=== PATIENT | female | born 1945 | race Caucasian/White ===

== ENCOUNTER 2019-06-30 12:17 | Inpatient (IN) | payer MEDICARE ==
[~2019-06-30] VITALS: Ht 157.5 cm
[2019-06-30 12:17] VITALS: BP 130/60
[2019-06-30 13:21] LABS: BASO % 0.4 % (0.0-1.0); EOS % 0.3 % (1.0-4.0); HEMATOCRIT 28.5 % (37.0-47.0); LYMPH # 1.2 10*3/uL (1.3-4.4); LYMPH % 12.5 % (27.0-41.0); MEAN CELL VOLUME 84.8 fl (81.0-99.0); MEAN CORPUSCULAR HGB 26.8 pg (27.0-31.0); MEAN CORPUSCULAR HGB CONC 31.6 g/dl (33.0-37.0); MEAN PLATELET VOLUME 9.6 fl (9.6-12.3); MONO # 0.7 10*3/uL (0.1-1.0); MONO % 7.2 % (3.0-9.0); NEUT # 7.4 10*3/uL (2.3-7.9); NEUT % 79.2 % (47.0-73.0); PLATELET COUNT AUTOMATED 335 10*3/uL (130-400); RED BLOOD COUNT 3.36 10*6/uL (4.10-5.10); RED CELL DISTRI WIDTH 14.3 % (0-14.5); WHITE BLOOD COUNT 9.3 10*3/uL (4.8-10.8)
[2019-06-30 13:38] LABS: ALBUMIN 2.6 gm/dl (3.1-4.5); CREATININE 1.09 mg/dL (0.55-1.02); POTASSIUM 4.1 mmol/L (3.5-5.1); TOTAL PROTEIN 7.5 gm/dL (6.4-8.2)
[2019-06-30 13:50] VITALS: BP 110/51
[2019-06-30] MEDS ORDERED: NORCO 5-325 TA1 EACH PO (14:46)
[2019-06-30] MEDS ORDERED: LASIX40 MG PO (14:46)
[2019-06-30] MEDS ORDERED: PAXIL10 MG PO (14:46)
[2019-06-30] MEDS ORDERED: PRAVACHOL40 MG PO (14:47)
[2019-06-30] MEDS ORDERED: NEXIUM40 MG PO (14:47)
[2019-06-30] MEDS ORDERED: CYCLOBENZAPRINE10 MG PO (14:48)
[2019-06-30] MEDS ORDERED: DONEPEZIL HYDRO10 M1 PO (14:48)
[2019-06-30 15:30] VITALS: BP 127/48
--- NOTE | 2019-06-30 15:55 | NUR ---
LEFT FOREARM WAS DRESSED WELL LEFT ELBOW.
[2019-06-30 16:00] VITALS: BP 139/61
[2019-06-30 16:08] VITALS: BP 116/51
--- NOTE | 2019-06-30 16:30 | NUR ---
A 74, admitted to , under the services of FRANK Hudson DO with a diagnosis of L HIP FRACTURE. Chief complaint is FELL @ HOME, FRACTURED HIP. Patient arrived via bed from ER. Monitor applied. Initial assessment completed. Vital signs taken and recorded. FRANK HUDSON DO notified of admission to the unit. Orders received. See assessment for past medical history, medications and allergies. Patient and/or family oriented to unit. [facility] visitation policy reviewed. Clothing/patient valuable form completed. ELADIA MALONE
[2019-06-30] MEDS ORDERED: METFORMIN HYDR500 MG PO (16:46)
[2019-06-30] MEDS ORDERED: ENALAPRIL MALEA20 MG PO (16:48)
[2019-06-30] MEDS ORDERED: SLOW-MAG71.5 MG PO (16:48)
[2019-06-30] MEDS ORDERED: PROAIR HFA8.5 GM INH (16:48)
[2019-06-30] MEDS ORDERED: GAS-X125 MG PO (16:49)
[2019-06-30] MEDS ORDERED: ECOTRIN325 M1 PO (16:49)
--- NOTE | 2019-06-30 18:25 | NUR ---
PATIENT MEDICATED WITH IV MORPHINE AT THIS TIME FOR COMPLAINTS OF L HIP PAIN 05/01. WILL MONITOR FOR EFFECTIVENESS.
[2019-06-30 20:00] VITALS: BP 139/60
--- NOTE | 2019-06-30 20:05 | NUR ---
PATIENT MEDICATED WITH NORCO PER PRN ORDER FOR C/OL HIP PAIN. RATED PAIN A 9/10 WITH 10 BEING THE WORST. SEE EMAR REINFORCED USE OF CALL LIGHT.
--- NOTE | 2019-06-30 22:42 | NUR ---
MORPHINE GIVEN PER PRN ORDER FOR C/O L HIP PAIN. RATED PAIN A 7/10 WITH 10 BEING THE WORST. SEE EMAR. REINFORCED USE OF CALL LIGHT.
--- NOTE | 2019-06-30 22:49 | NUR ---
PATIENT REQUESTED AND WAS MEDICATED TYLENOL PER PRN ORDER FOR C/O HEADACHE. RATED PAIN A 9/10 WITH 10 BEING THE WORST.
[2019-07-01] VITALS (12 sets, daily range): BP systolic 96–134; BP diastolic 43–78
--- NOTE | 2019-07-01 00:22 | NUR ---
NORCO GIVEN FOR C/O HIP PAIN. RATED PAIN A 6/10 WITH 10 BEING THE WORST. SEE EMAR. TYLENOL GIVEN EARLIER WAS EFFECTIVE FOR HEADACHE.
--- NOTE | 2019-07-01 01:29 | NUR ---
PATIENT RESTING QUIETLY. NO FURTHER C/O VOICED.
--- NOTE | 2019-07-01 02:10 | NUR ---
24 HR chart check completed.
--- NOTE | 2019-07-01 04:55 | NUR ---
MORPHINE 2 MG GIVEN FOR C/O HIP PAIN. RATED PAIN A 9/10 WITH 10 BEING THE WORST. SEE EMAR.
--- NOTE | 2019-07-01 04:59 | NUR ---
MORPHINE GIVEN PER PRN ORDER FOR C/O HIP PAIN. RATED PAIN A 8/10 WITH 10 BEING THE WORST. SEE EMAR. REINFORCED USE OF CALL LIGHT.
--- NOTE | 2019-07-01 05:21 | NUR ---
QUINCY BENAVIDES [id number] Please refer to the physician's history and physical for past medical history, comorbid conditions, and allergies. Diagnosis: SUBCAPITAL FRACTURE OF LEFT PAIN CERVICl STRAIN Ger Score: 16,AT RISK WOUND DESCRIPTIONS: Wound Number: 1 Location of the wound: left elbow Type of wound: skin tear Thickness: Partial Size: 1.0cm x 1.0cm x 0.1cm Tunneling: none Undermining: none Sinus Tract: none Presence of Exudate: Serosanguineous Amount: Light Color: Red Odor: None Periwound Skin Appearance: Normal Wound edges: approximated Pain (associated with wound): none at time of assessment How does patient state this happened? pt stated her skin is very thin and all she has to do is lean on the countertop wrong at this can happen she states if she bumps herself she either gets a bruise or an open area Wound Number: 2 Location of the wound: left forearm Type of wound: skin tear Thickness: Partial Size: 1.1cm x 1.2cm x 0.1cm Tunneling: none Undermining: none Sinus Tract: none Presence of Exudate: Serosanguineous Amount: Light Color: Red Odor: None Periwound Skin Appearance: Normal Wound edges: approximated Pain (associated with wound): none at time of assessment How does patient state this happened? pt stated her skin is very thin and all she has to do is lean on the countertop wrong at this can happen she states if she bumps herself she either gets a bruise or an open area Surface the patient is resting on: Isoflex SKIN PREVENTION RECOMMENDATION: 1. Pressure redistribution support surface as appropriate 2. Elevate heels 3. Remove boots/TEDS every shift and reapply 4. Head of bed 30 degrees as tolerated 5. Assess nutrition and hydration 6. Manage moisture 7. Avoid the use of containment devices while in bed 8. Use absorptive products on surfaces limit layers of linens on bed 9. Turn and reposition every 1-2 hours in bed and every 1 hour in chair as tolerated 10. Weight shifts every 15 minutes while up in chair 11. Offloading with pillows or device to keep heels elevated off bed 12. Monitor skin at least every shift 13. Inspect under medical devices twice a day WOUND TREATMENT RECOMMENDATIONS: Skin tear guidelines: Cleanse left elbow and left forearm with nss and apply sureprep around the wound hydrogel to wound bed and cover with optifoam gentle.
[2019-07-01 06:42] LABS: BASO # 0.1 10*3/uL (0.0-0.1); BASO % 0.6 % (0.0-1.0); EOS # 0.1 10*3/uL (0.0-0.4); EOS % 0.8 % (1.0-4.0); HEMATOCRIT 28.7 % (37.0-47.0); LYMPH # 2.4 10*3/uL (1.3-4.4); MEAN CELL VOLUME 83.9 fl (81.0-99.0); MEAN CORPUSCULAR HGB 26.3 pg (27.0-31.0); MEAN CORPUSCULAR HGB CONC 31.4 g/dl (33.0-37.0); MEAN PLATELET VOLUME 10.7 fl (9.6-12.3); MONO # 0.7 10*3/uL (0.1-1.0); NEUT # 6.6 10*3/uL (2.3-7.9); NEUT % 67.3 % (47.0-73.0); PLATELET COUNT AUTOMATED 419 10*3/uL (130-400); RED BLOOD COUNT 3.42 10*6/uL (4.10-5.10); RED CELL DISTRI WIDTH 14.3 % (0-14.5); WHITE BLOOD COUNT 9.9 10*3/uL (4.8-10.8)
[2019-07-01 06:57] LABS: ALBUMIN 2.3 gm/dl (3.1-4.5); CREATININE 1.11 mg/dL (0.55-1.02); PHOSPHOROUS 3.7 mg/dL (2.5-4.9); POTASSIUM 3.8 mmol/L (3.5-5.1); TOTAL PROTEIN 7.4 gm/dL (6.4-8.2)
[2019-07-01 07:11] LABS: FREE T4 1.04 ng/dl (0.76-1.46); THYROID STIM HORMONE (HS) 0.681 uIU/ml (0.358-4.75)
--- NOTE | 2019-07-01 08:03 | NUR ---
PHYSICAL THERAPY Physical therapy referral received. Pt went into surgery this morning. Awaiting weight bearing orders per doctor. Thank you Cierra Farley, PT, DPT
--- NOTE | 2019-07-01 08:03 | NUR ---
PATIENT BEING TAKEN TO SURGERY AT THIS TIME.
--- NOTE | 2019-07-01 08:19 | NUR ---
Occupational THerapy referral received. OTR will proceed with evaluation after surgery and weight bearing precautions. Thank you. Marcella Levy OTR/[facility]
[2019-07-01 08:22] LABS: VITAMIN D, 25-HYDROXY 66.8 ng/mL (30-100)
--- NOTE | 2019-07-01 08:56 | NUR ---
Nursing screen and occupational therapy referral received. Thank you. Marcella Levy OTR/l
--- NOTE | 2019-07-01 10:02 | NUR ---
Dr. Mojica notified of wound care recommendations.
--- NOTE | 2019-07-01 12:55 | NUR ---
Station Jailer in to talk to patient. Patient states lives at HOME with AND SON. There are FEW steps in the home. Physician: GAMALIEL TAVERAS JR Pharmacy: [facility] Home health services:NONE Patient's level of ADLs: INDEPENDENT Patient has working utilities: YES DME: NONE Follow-up physician's appointment after d/c: WILL BE MADE BY HOSPITALIST NURSE DIRECTOR ON DISCHARGE Does patient want to access PORTAL?: NO Discharge plan PT LIVES AT HOME WITH HER AND SON WHO ARE ALSO PTS HER AT [facility]. MOTHER HAS SURGERY TODAY AND HAS REQUESTED TO BE REFERRED TO [facility]. WILL CONTINUE TO FOLLOW. . KRAIG RAY
--- NOTE | 2019-07-01 14:30 | NUR ---
PATIENT MEDICATED WITH MOPRHINE POST-OP FOR COMPLAINTS OF LEFT HIP PAIN; WILL MONITOR
--- NOTE | 2019-07-01 15:30 | NUR ---
PHYSICAL THERAPY Attempted physical therapy evaluation however Pt reports she is in too much pain. Will attempt at a later time. thank you Cierra Farley, PT, DPT
--- NOTE | 2019-07-01 15:33 | NUR ---
Patient unable to participate in Occupational THerapy evaluation as she had too much pain. Nursing informed. OTR will recheck at a later date. Melani Levy OTR/L
--- NOTE | 2019-07-01 15:35 | NUR ---
MOPRHINE NOT EFFECTIVE FOR LEFT HIP PAIN; PATIENT MEDICATED AGAIN WITH NORCO. WILL MONITOR. PAIN STILL 03/31
--- NOTE | 2019-07-01 16:45 | NUR ---
PER PATIENT, NORCO HAS BEEN EFFECTIVE - PT MORE RELAXED AT THIS TIME.
--- NOTE | 2019-07-01 19:25 | NUR ---
PATIENT MEDICATED WITH NORCO PER PRN ORDER FOR C/O L HIP PAIN . RATED PAIN A 9/10 WITH 10 BEING THE WORST. SEE EMAR. REINFORCED USE OF CALL LIGHT.
--- NOTE | 2019-07-01 21:40 | NUR ---
PATIENT MEDICATED WITH TYLENOL AND MORPHINE PER PRN ORDER AND PATIENT REQUEST FOR C/O HEADACHE AND L. HIP PAIN. RATED PAIN A 7/10 WITH 10 BEING THE WORST. SEE EMAR. REINFORCED USE OF CALL LIGHT.
[2019-07-02] VITALS: BP 124/56
--- NOTE | 2019-07-02 03:44 | NUR ---
Upon discharge recommend patient to follow up for wound care in outpatient setting continue current wound care orders at discharging facility.
[2019-07-02 06:38] LABS: BASO # 0.1 10*3/uL (0.0-0.1); BASO % 0.6 % (0.0-1.0); EOS # 0.1 10*3/uL (0.0-0.4); EOS % 0.8 % (1.0-4.0); HEMATOCRIT 24.5 % (37.0-47.0); HEMOGLOBIN 7.5 g/dl (12.0-16.0); LYMPH # 2.2 10*3/uL (1.3-4.4); LYMPH % 20.3 % (27.0-41.0); MEAN CELL VOLUME 85.1 fl (81.0-99.0); MEAN CORPUSCULAR HGB CONC 30.6 g/dl (33.0-37.0); MEAN PLATELET VOLUME 10.8 fl (9.6-12.3); MONO # 1.3 10*3/uL (0.1-1.0); MONO % 12.1 % (3.0-9.0); NEUT # 7.1 10*3/uL (2.3-7.9); NEUT % 65.7 % (47.0-73.0); PLATELET COUNT AUTOMATED 385 10*3/uL (130-400); RED BLOOD COUNT 2.88 10*6/uL (4.10-5.10); RED CELL DISTRI WIDTH 14.6 % (0-14.5); WHITE BLOOD COUNT 10.8 10*3/uL (4.8-10.8)
[2019-07-02 06:57] LABS: BUN 13 mg/dl (7-24); CHLORIDE 104 mmol/L (98-107); CREATININE 0.96 mg/dL (0.55-1.02); POTASSIUM 4.1 mmol/L (3.5-5.1); SODIUM 135 mmol/L (136-145)
--- NOTE | 2019-07-02 07:26 | NUR ---
NEWS CAMERAMAN faxed new referral to [facility]. Will need PT Evals to complete the referral. -HORACIO Donnelly
--- NOTE | 2019-07-02 07:55 | NUR ---
Occupational Therapy evaluation completed on 5 with full eval to follow. Precautions include fall risk,50% weight bearing on left lower extremity, left hip precautions,bloom catheter, IV UE,hemovac LLE, new walker use, high complexity level [id number] via chart review, testing and evaluation. Recommend OT per POC to address ADLs, left hip precautions and partial weightbearing in ADLs and mobility and safety and d/c to SNF to enable return home with family. Patient's disabled son and her are both currently hospitalized. Thank you. Melani Levy OTR/L
--- NOTE | 2019-07-02 08:00 | NUR ---
Face to face encounter with Dr. Mojica. Patients labs orders and post op status were discussed. H & H will be monitored as well as S&S.
--- NOTE | 2019-07-02 08:28 | NUR ---
Dr. Mojica notified of wound care recommendations.
--- NOTE | 2019-07-02 08:37 | NUR ---
Morphine given per patient request for c/o surgical pain rated 10/10. Will monitor.
--- NOTE | 2019-07-02 08:55 | NUR ---
Morphine effective. Patient rates pain 8/10.
--- NOTE | 2019-07-02 08:55 | NUR ---
Casper cath removed. 10cc fluid removed from balloon. 175cc yellow urine collected. Patient educated to notify staff of first void. Patient tolerated well.
--- NOTE | 2019-07-02 09:10 | NUR ---
CARPET WEAVER completed HENs. -HORACIO Donnelly
--- NOTE | 2019-07-02 09:38 | NUR ---
FRAMING INSPECTOR spoke with the patient while having her sign her Medicare Rights form. Patient stated that there is supposed to be a RN coming to the home from [facility] on 07/06/2019. Patient asked that this person be notified of the family being unavaiable due to the current situation. FRAMING INSPECTOR reached out to [facility]. A message was left for Cristiana to return HORACIO phone call. The patient also asked that her or her (who is in our facility as well) be roomed with the patients son (who is in our facility also) at [facility] since they have all be referred there. HORACIO reached out to [facility] who stated she would room this patient and her son together. FRAMING INSPECTOR explained this to the patient. -HORACIO Donnelly
--- NOTE | 2019-07-02 10:54 | NUR ---
[place] given per patient request for c/o surgical pain in left hip rated 8/10. Will monitor.
--- NOTE | 2019-07-02 11:07 | NUR ---
CIVIL ENGINEERING DRAFTSPERSON IN TO TALK TO PT TO SEE IF SHE WAS OK WITH HER SON GOING TO [facility] BEFORE SHE DOES IF WE GET HIS PRECERT. SHE TALKED WITH PT AND BOTH ARE OK WITH PT GOING BEFORE HER IF WE OBTAIN PRECERT.
[2019-07-02 12:00] VITALS: BP 120/54
--- NOTE | 2019-07-02 12:23 | NUR ---
Nutritional Support Services Note: Pt is eating 100% of meals. Regular diet as ordered. Skin tear noted to left arm. Hip Fx. No other nutrition intervention needed at this time. Will follow as needed. Mary Ibanez Rdn Ld
--- NOTE | 2019-07-02 13:20 | NUR ---
OT NOTE Pt was seen this P.M. 1:1 for 20 minute OT session. Upon arrival pt was supine in bed. Pt identified by name and and had complaints of "12/10 L hip and L knee pain." Educated pt on use of overhead trapeze bar. Pt then transferred supine to sit EOB with modA and use of overhead trapeze bar. While sitting EOB pt was educated on hip precautions due to being unable to recall, pt also provided with a handout. Pt completed multiple sit to stand transfers from bed level with Criss X 2 and use of w/w for UE uspport. Challenged pt's static standing tolerance needed for increased I in self care tasks and functional transfers. Pt was able to tolerate aprox 60 seconds at a time before sitting due to fatigue. Pt then transferred back into bed sit to supine with maxA X 2. There she was left with call light in hand, tray table in place, bed alarm activated for safety, and pillow placed between legs for abduction. Continue with rec D/C plan to SNF. HERSON Miranda/[facility]
--- NOTE | 2019-07-02 13:52 | NUR ---
PHYSICAL THERAPY Progress note: Pt was seen for evaluation while on 5th floor. She is status post left hip hemiarthroplasty with total hip precautions and 50% weight bearing. Please refer to evaluation for complete details with recommendation for SNF upon acute care discharge. Thank you for this referral. Marifer Mccormack, PT
--- NOTE | 2019-07-02 14:05 | NUR ---
PHYSICAL THERAPY Patient seen this pm 1:1 for therapy visit and was resting supine in bed upon therapist arrival. Patient identified by name / and reports increased c/o of L hip pain 08/31. Patient instructed on bed positioning for pressure relief / comfort with use of overhead trapeze bar and is 50% PWB on L LE. Patient transfers supine to sit EOB with MOD A, needing therapist assist for L LE support and to maintain standard hip precations. Patient completed several sit to stand transfers Min A with use of wh walker standing support. Patient demonstrates [place] L side posture and was able to maintain standard hip precations / WB status. Patient fatigues quickly and needed seated rest between trials. Patient returned to supine in bed secondary to c/o of pain and remained with call light, tray table, telephone and bed alarm for safety. Will continue per POC as tolerated, total treatment time 14 minutes. Castro Blackman, SUBSTITUTE BUS DRIVER
--- NOTE | 2019-07-02 14:25 | NUR ---
FINANCIAL MANAGER faxed PT Eval to [facility]. Patient would be able to go to [facility] 07/03/2019 if medically stable, however her post-op day 3 would be 07/04/2019. Either day patient would be okay to be transported to [facility]. -HORACIO Donnelly
[2019-07-02 16:00] VITALS: BP 111/23; BP 111/52
--- NOTE | 2019-07-02 16:34 | NUR ---
PHYSICAL THERAPY CO-SIGN I approve of the Physical Therapy notes written above. KEI WIGGINS PT,DPT
--- NOTE | 2019-07-02 16:35 | NUR ---
Notified Dr. Mojica that patients home medications have not been ordered. No new orders, physician to review.
--- NOTE | 2019-07-02 17:20 | NUR ---
[place] given per patient request for c/o surgical pain rated 9/10. Will monitor.
--- NOTE | 2019-07-02 18:12 | NUR ---
[place] effective. Patient is satisfied and rates pain 7/10.
[2019-07-02 20:00] VITALS: BP 123/59
--- NOTE | 2019-07-02 20:00 | NUR ---
PATIENT MEDICATED WITH TYLENOL PER PRN ORDER FOR C/O HIP PAIN. RATED PAIN A 6/10 WITH 10 BEING THE WORST. SEE EMAR. REINFORCED USE OF CALL LIGHT.
--- NOTE | 2019-07-02 21:00 | NUR ---
PATIENT STATED MEDICATION GIVEN EARLIER HELPED A LITTLE TO TAKE EDGE OFF PAIN. REINFORCED USE OF CALL LIGHT.
--- NOTE | 2019-07-02 22:00 | NUR ---
PATIENT MEDICATED WITH NORCO PER PRN ORDER AND PATIENT REQUEST FOR C/O HIP PAIN. RATED PAIN A 6/10 WITH 10 BEING THE WORST. SEE EMAR. REINFORCED USE OF CALL LIGHT.
--- NOTE | 2019-07-02 23:46 | NUR ---
PATIENT RESTING QUIETLY. NO FURTHER C/O VOICED. STATED PAIN LEVEL TOLERABLE AT PRESENT.
[2019-07-03] VITALS: BP 139/53
[2019-07-03 06:38] LABS: BASO # 0.1 10*3/uL (0.0-0.1); BASO % 0.9 % (0.0-1.0); EOS # 0.2 10*3/uL (0.0-0.4); EOS % 1.4 % (1.0-4.0); HEMATOCRIT 24.1 % (37.0-47.0); HEMOGLOBIN 7.4 g/dl (12.0-16.0); LYMPH # 2.3 10*3/uL (1.3-4.4); LYMPH % 20.8 % (27.0-41.0); MEAN CELL VOLUME 85.5 fl (81.0-99.0); MEAN CORPUSCULAR HGB 26.2 pg (27.0-31.0); MEAN CORPUSCULAR HGB CONC 30.7 g/dl (33.0-37.0); MONO # 1.3 10*3/uL (0.1-1.0); MONO % 11.4 % (3.0-9.0); NEUT # 7.2 10*3/uL (2.3-7.9); NEUT % 64.5 % (47.0-73.0); PLATELET COUNT AUTOMATED 401 10*3/uL (130-400); RED BLOOD COUNT 2.82 10*6/uL (4.10-5.10); RED CELL DISTRI WIDTH 14.8 % (0-14.5); WHITE BLOOD COUNT 11.1 10*3/uL (4.8-10.8)
--- NOTE | 2019-07-03 07:00 | NUR ---
DR NICHOLS IN TO SEE PATIENT . DRAIN REMOVED TYLENOL GIVEN PER PRN ORDER FOR C/O PAIN. SEE EMAR. REINFORCED USE OF CALL LIGHT.
[2019-07-03 07:01] LABS: BUN 14 mg/dl (7-24); CHLORIDE 102 mmol/L (98-107); CREATININE 0.96 mg/dL (0.55-1.02); POTASSIUM 4.3 mmol/L (3.5-5.1); SODIUM 134 mmol/L (136-145)
[2019-07-03 08:00] VITALS: BP 128/52
--- NOTE | 2019-07-03 10:15 | NUR ---
NORCO 10/325 MG GIVEN FOR C/0 PAIN,06/01.
--- NOTE | 2019-07-03 10:30 | NUR ---
PHYSICAL THERAPY PATIENT SEEN FOR 1:1 SESSION TODAY WITH THIS PT: COMPLETED BLE THER EX INCLUIDNG ROM AND STRENGTHENING FOR BLE WITH FAIR TOLERANCE. TRANSFERS FROM STS WITH MOD OF 1 AND SPT FROM BED TO RECLINER WITH MOD /MAX OF 1 WITH FWW. BED MOBILITY TRAINING WITH USE OF TRAPEZE AND BED RAILS REQUIRES MOD/MAX OF 1. NOT ABLE TO GAIT TODAY STATING SHE IS HAVING TOO MUCH PAIN. WILL CONTINUE WITH PT WHILE HERE WITH RECOMMENDATIONS STILL FOR SNF ON D/C. THANK YOU RASHAD HATHAWAY PT
[2019-07-03 12:00] VITALS: BP 125/52
[2019-07-03 16:00] VITALS: BP 105/47
--- NOTE | 2019-07-03 19:03 | NUR ---
PT C/O PAIN TO HIP. ENCOURAGED PT TO REPOSITION. PT REFUSED. PT PREVIOUSLY MEDICATED.
[2019-07-03 20:00] VITALS: BP 121/40
--- NOTE | 2019-07-03 22:10 | NUR ---
PATIENT GIVEN NORCO PER REQUEST FOR LEFT LEG PAIN RATED A 7/10. WILL CONTINUE TO MONITOR.
[2019-07-04] VITALS: BP 120/39
--- NOTE | 2019-07-04 06:22 | NUR ---
NORCO GIVEN PER ORDER FOR COMPLAINTS OF 9/10 PAIN IN LEFT HIP. WILL MONITOR EFFECTIVENESS.
[2019-07-04 06:26] LABS: BASO # 0.1 10*3/uL (0.0-0.1); BASO % 0.8 % (0.0-1.0); EOS # 0.2 10*3/uL (0.0-0.4); HEMOGLOBIN 7.1 g/dl (12.0-16.0); LYMPH # 2.8 10*3/uL (1.3-4.4); LYMPH % 29.3 % (27.0-41.0); MEAN CELL VOLUME 85.2 fl (81.0-99.0); MEAN CORPUSCULAR HGB 26.3 pg (27.0-31.0); MEAN CORPUSCULAR HGB CONC 30.9 g/dl (33.0-37.0); MONO % 10.6 % (3.0-9.0); NEUT # 5.4 10*3/uL (2.3-7.9); NEUT % 56.2 % (47.0-73.0); PLATELET COUNT AUTOMATED 437 10*3/uL (130-400); WHITE BLOOD COUNT 9.7 10*3/uL (4.8-10.8)
[2019-07-04 06:54] LABS: CREATININE 1.12 mg/dL (0.55-1.02)
--- NOTE | 2019-07-04 07:52 | NUR ---
24 HR chart check completed.
[2019-07-04 08:00] VITALS: BP 120/42
--- NOTE | 2019-07-04 08:01 | NUR ---
24 HR chart check completed.
--- NOTE | 2019-07-04 09:00 | NUR ---
SLEEPING, AWAKENS EASILY. RESPIRATIONS EASY. LUNGS DIMINISHED, CLEAR. PULSE OX 94% RA. SURGICAL DRESSING REMOVED FROM LEFT HIP, WELL APPROXIMATED WITH 27 LICO INTACT. TUBI-SUEDE BRUSHER AND SCDS APPLIED PER ORDER. CALL LIGHT WITHIN REACH. NO VOICED COMPLAINTS
--- NOTE | 2019-07-04 09:45 | NUR ---
DR BROWN AND DANYELL PRESENT ON FLOOR TO ASSESS PATIENT AND DISCUSS PLAN OF CARE
--- NOTE | 2019-07-04 11:02 | NUR ---
MEDICATED WITH NORCO PER PRN ORDER FOR COMPLAINTS OF LEFT HIP PAIN RATING A 9. CALL LIGHT WITHIN REACH. WILL MONITOR FOR EFFECTIVENESS
[2019-07-04 12:00] VITALS: BP 110/42
--- NOTE | 2019-07-04 12:00 | NUR ---
PAIN MEDS APPEAR EFFECTIVE. SLEEPING. RESPIRATIONS EASY. VSS. CALL LIGHT WITHIN REACH. BED ALARM MAINTAINED
--- NOTE | 2019-07-04 12:00 | NUR ---
BSG 195. REFUSED SS COVERAGE. WILL MONITOR
--- NOTE | 2019-07-04 12:00 | NUR ---
PHYSICAL THERAPY PATIENT SEEN TODAY FOR 1:1 SESSION IN [place] LYING FOR BLE THER EXERCISES INCLDUING AROM, AAROM AND PROM; PATIENT REFUSING OUT OF BED THIS DATE STATING SHE IS TOO TIRED AND IN TOO MUCH PAIN. WAS ABLE TO GET HER TO WORK ON SOME BED MOBILITY TASKS WITH MAX OF 1 FOR REPOSITIONING AND COMFORT. D/C RECOMMENDATIONS REMAIN FOR SNF. THANK YOU RASHAD HATHAWAY PT
--- NOTE | 2019-07-04 13:00 | NUR ---
SURGICAL DRESSING REMOVED FROM LEFT HIP. INCISION SITE WELL APPROXIMATED WITH 27 LICO INTACT. SITE CLEANSED AND DRY DRESSING APPLIED. PATIENT TOLERATED WELL
--- NOTE | 2019-07-04 14:15 | NUR ---
PATIENT ENCOURAGED OOB. DECLINED. EDUCATED PATIENT REGARDING IMPORTANCE OF OOB TID. PATIENT ASSISTED TO RECLINER X 2 STAFF. CALL LIGHT WITHIN REACH.
[2019-07-04 16:00] VITALS: BP 102/40
--- NOTE | 2019-07-04 16:29 | NUR ---
REMAIN IN RECLINER. REQUESTED AND RECEIVED NORCO 10 PER PRN ORDER FOR COMPLAINTS OF LEFT HIP PAIN RATING A 9. PER PATIENT PAIN IS ALWAYS A 9 UNLESS SLEEPING. CALL LIGHT WITHIN REACH. WILL MONITOR
--- NOTE | 2019-07-04 16:30 | NUR ---
BSG 159, CONTINUES TO REFUSE SS COVERAGE
--- NOTE | 2019-07-04 17:00 | NUR ---
STATES EARLIER ELIZABETH HELPED "A ALITTLE." REMAINS IN RECLINER WATCHING TV
--- NOTE | 2019-07-04 19:30 | NUR ---
REMAINS IN RECLINER.
[2019-07-04 20:00] VITALS: BP 90/40; BP 94/38
--- NOTE | 2019-07-04 20:07 | NUR ---
PT ASSISTED BACK INTO BED FROM CHAIR. SCDs APPLIED PER ORDER. PT C/O ITCHING TO POSTERIOR L THIGH. STATES SHE THINKS AREA IS IRRITATED FROM TAPE FROM PREVIOUS SURGICAL DRESSING. AREA IS PINK/RED WITH RAISED WELT-LIKE AREA. PT REQUESTING BENADRYL CREAM OR ORAL BENADRYL. NOTIFIED OF THIS. NEW ORDER RECEIVED FOR 12.5 MG PO BENADRYL X1 DOSE. ALSO MADE AWARE OF BP 94/38. AWARE THAT BP AT 1600 WAS 102/40. INSTRUCTED TO MONITOR FOR NOW.
[2019-07-05] VITALS: BP 105/38
[2019-07-05 04:20] VITALS: BP 101/39
--- NOTE | 2019-07-05 05:41 | NUR ---
DRY STERILE DRESSING TO L HIP SURGICAL INCISION CHANGED PER ORDER. OLD DRESSING CAME OFF. PT TOLERATED WELL. ABD PAD APPLIED TO PROVIDE EXTRA SUPPORT TO DRESSING. SECURED WITH PAPER TAPE. PO NORCO 10/325 ALSO ADMINISTERED PER PRN ORDER AT THIS TIME. PT RATING PAIN IN L HIP 05/01. WILL MONITOR EFFECTIVENESS. CALL LIGHT LEFT IN REACH.
[2019-07-05 06:41] LABS: BASO # 0.1 10*3/uL (0.0-0.1); BASO % 0.5 % (0.0-1.0); EOS # 0.2 10*3/uL (0.0-0.4); EOS % 2.1 % (1.0-4.0); HEMATOCRIT 22.3 % (37.0-47.0); LYMPH # 2.2 10*3/uL (1.3-4.4); LYMPH % 22.5 % (27.0-41.0); MEAN CELL VOLUME 84.2 fl (81.0-99.0); MEAN CORPUSCULAR HGB 26.4 pg (27.0-31.0); MEAN CORPUSCULAR HGB CONC 31.4 g/dl (33.0-37.0); MEAN PLATELET VOLUME 10.3 fl (9.6-12.3); MONO # 1.3 10*3/uL (0.1-1.0); MONO % 13.1 % (3.0-9.0); NEUT # 5.9 10*3/uL (2.3-7.9); NEUT % 60.5 % (47.0-73.0); PLATELET COUNT AUTOMATED 509 10*3/uL (130-400); RED BLOOD COUNT 2.65 10*6/uL (4.10-5.10); RED CELL DISTRI WIDTH 15.3 % (0-14.5); WHITE BLOOD COUNT 9.8 10*3/uL (4.8-10.8)
[2019-07-05 07:20] LABS: CREATININE 1.44 mg/dL (0.55-1.02); POTASSIUM 4.4 mmol/L (3.5-5.1)
--- NOTE | 2019-07-05 07:37 | NUR ---
UNIT TENDER faxed updates to [facility]. Patient is able to go when medically stable. -HORACIO Donnelly
--- NOTE | 2019-07-05 07:45 | NUR ---
UP TO BSC AND THEN TO CHAIR WITH PT
[2019-07-05 08:00] VITALS: BP 110/43
--- NOTE | 2019-07-05 09:30 | NUR ---
OT NOTE Pt was seen this A.M. 1:1 for 20 minute OT session. Upon arrival pt was sitting upright on the bedside commode. Pt identified by name and and had complaints of 7/10 R hip pain at rest and 9/10 R hip pain with activity. Pt completed sit to stand from bedside commode with modA and use of w/w, pt was educated on transfer technique and safety awareness for increased I and pt had poor carry over. Clothing management completed with modA and toilet hygiene completed with maxA. Standing pivot was completed from the bedside commode to the EOB with modA and verbal prompts for sequencing and safety with hip precautions due to pt pivoting on LLE. Pt then completed standing pivot from EOB to the recliner with modA and use of w/w for UE support. Attempted to complete other tasks towards pt's POC and pt stated she needed to rest due to the pain. Pt was left sitting upright in the recliner with call light in hand, tray table in place, and body alarm activated for safety. Continue with rec D/C plan to SNF. HERSON Miranda/[facility]
--- NOTE | 2019-07-05 10:20 | NUR ---
PHYSICAL THERAPY Patient presented to therapy in sitting on bedside commode AND REPORT OF L hip PAIN OF 7/10 pain at rest and 9/10 pain with activity. Patient is in hospital with both her son and who are also patients. Patient was identified by frantz and CHRIS on wristband. Patient gives informed consent for treatment. Patient performed sit to stand from bedside commode with MOD A X 1 with verbal cues for pushng off commode with hands and maintaining 50% WT BEARIGN on the L LE. Patient sat on EOB with MIN A X 1. Patient sit to stand from EOB with MOD A X 1. Patient transferred to bedside chair with MIN A X 2 with verbal cues for for proper technique , however the patient used her own technique of pivoting on the R LE instead of walking over to the chair and turnign back towards chair. Patient demonstrated unsafe technique with transfer into bed side chair. Patient required MOD A X 1 into bedside chair. Patient required verbal cues for putting hands back onto bedside chair. Patient was left in bedside chair wit hchair alarm tested and attached, call light within reach, and LEs in low position. Patient was 1:1 with this PAPERHANGER SUPERVISOR for 15 minutes total. LEEANN CARMONA PAPERHANGER SUPERVISOR
--- NOTE | 2019-07-05 11:14 | NUR ---
OT NOTE Pt was seen this A.M. for second OT session consisting of 10 minutes due to pt requesting to transfer back into bed due to pain and feeling light headed. Pt completed sit to stand transfer from chair level with modA and use of w/w with education on proper hand placement for increased I. Pt requires mod verbal prompts for following 50% weight bearing to LLE. Standing pivot completed from the recliner to the EOB with Criss and use of w/w. Pt transferred sit to supine with Criss for assist with LLE. Pt was left supine in bed with call light in hand, tray table in place, and bed alarm activated for safety. Continue with rec D/C plan to SNF. HERSON Miranda/[facility]
--- NOTE | 2019-07-05 11:35 | NUR ---
PT WILL BE DISCHARGED TO [facility] WHEN MEDICALLY STABLE. WILL CONTINUE TO FOLLOW.
--- NOTE | 2019-07-05 11:38 | NUR ---
PHYSICAL THERAPY Patient presented to therapy in sitting in bedside chair. Patient had call light on and wanted to transfer back to supine in bed. Patient's IV was leaking and Nursing notified about this. After significant time, Nursing Consumer Affairs Manager came into the room and turned off the IV until she could find patient's nurse. Patient transferred sit to stand out of bedside chair with MOD A X 2 with verbal cues for proper technique. Patient performed standing transfer onto EOB with MIN A X 2. Patient transferred sit to supine in bed with MAX A X 2. Patient was left in supine with head of bed elevated, call light within reach, and bed alarm activated. Patient was 1:1 with this BUSINESS EDUCATION TEACHER for 20 minutes. LEEANN CARMONA BUSINESS EDUCATION TEACHER
--- NOTE | 2019-07-05 11:45 | NUR ---
IV SITE LEAKING AND REMOVED, UNSUCCESSFUL X 6 AND [address] BROWN UPDATED
[2019-07-05 12:00] VITALS: BP 109/40
--- NOTE | 2019-07-05 13:40 | NUR ---
OT NOTE Pt was seen this P.M. 1:1 for 25 minute OT session. Upon arrival pt was supine in bed. Pt identified by name and and had complaints of 9/10 L hip pain. Pt transferred supine to sit EOB with Criss. While sitting EOB pt was educated and demonstrated on use of LB adaptive equipment consisting of quality assurance group leader, sock aid, and long handled sponge. Pt doffed L sock with Criss and use of quality assurance group leader and R sock with SBA and use of quality assurance group leader. Pt then donned B socks with SBA and use of sock aid. LB bathing simulated at this time with use of long handled sponge. Pt then transferred back into bed sit to supine with Criss for assist with LLE. Pt was left supine in bed with call light in hand, tray table in place, and bed alarm activated for safety. Continue with rec D/C plan to SNF. HERSON Miranda/[facility]
--- NOTE | 2019-07-05 14:54 | NUR ---
PHYSICAL THERAPY Patient presented to therapy in supine with head of bed elevated and bed alarm activated. Patient was identified by name and on wristband. Patient gives informed consent for treatment. Patient says she does NOT feel that she is ready to walk and doesn't want to walk today. Patient does agree to sit EOB and do therapeutic exercises. Patient transferred supine to sitting at EOB with MIN A X 1 to move L LE out over EOB. Patient sat on EOB and performed bilateral LE therapeutic exercises 2 x 10 reps each LAQs, heel/toe raises and R LE HIP FLEXION EXERCISES. Patient transferred back to supine in bed with MIN A X 2. Patient moved up TO HEAD OF BED bed with transfer sheet with MAX A X 2. Patient was left in supine with head of bed elevated, call light within reach, and bed alarm activated. Patient was 1:1 with this HUMAN RESOURCES HR GENERALIST for 15 minutes total. LEEANN CARMONA HUMAN RESOURCES HR GENERALIST
--- NOTE | 2019-07-05 14:55 | NUR ---
EATING LUNCH, REFUSES TO GET OOB, WILL GET UP WHEN FINISHED EATING
[2019-07-05 16:00] VITALS: BP 112/38
--- NOTE | 2019-07-05 17:30 | NUR ---
PATIENT MEDICATED WITH NORCO FOR C/O 7/10 L HIP PAIN. WILL MONITOR
--- NOTE | 2019-07-05 17:30 | NUR ---
ELENA RE-EDUCATED ON FLUID RESTRICTION, DAUGHTER AT BEDSIDE INFORMED WELL. PATIENT STATED UNDERSTANDING, NOT PLEASED, BUT UNDERSTOOD. CALL LIGHT LEFT WITIN REACH
--- NOTE | 2019-07-05 18:30 | NUR ---
NORCO EFFECTIVE FOR PAIN.
[2019-07-05 20:00] VITALS: BP 102/40
--- NOTE | 2019-07-05 21:12 | NUR ---
PATIENT ASSISTED UP IN TO CHAIR WITH ASSIST X2.
--- NOTE | 2019-07-05 23:16 | NUR ---
PT ASSISTED BACK INTO BED AT THIS TIME. WILL MONITOR. CALL LIGHT IN REACH.
[2019-07-06] VITALS (8 sets, daily range): BP systolic 97–146; BP diastolic 32–84
--- NOTE | 2019-07-06 01:50 | NUR ---
PT ASLEEP IN BED. RESPIRATIONS EASY. NO S/S OF DISTRESS NOTED. WILL MONITOR.
--- NOTE | 2019-07-06 04:41 | NUR ---
PT ASSISTED OOB UP TO BSC AND BACK INTO BED WITH ASSIST X2. PATIENT IS ABLE TO MOVE MUCH BETTER THAN LAST NIGHT. PT ABLE TO PIVOT & MOVE USING TOUCH TOE 50% WEIGHT BEARING TO LLE. PT MEDICATED WITH PO NORCO FOR C/O L HIP PAIN RATED 8/10. PO DULCOLAX ALSO ADMINISTERED FOR NO BM SINCE 07/02. WILL MONITOR EFFECTIVENESS. BED LEFT LOCKED IN LOW POSITION. BED ALARM INTACT. CALL LIGHT IN REACH.
--- NOTE | 2019-07-06 04:41 | NUR ---
PT ASSISTED OOB UP TO BSC AND BACK INTO BED WITH ASSIST X2. PATIENT IS ABLE TO MOVE MUCH BETTER THAN LAST NIGHT. PT ABLE TO PIVOT & MOVE USING TOUCH TOE 50% WEIGHT BEARING TO LLE. PT MEDICATED WITH PO NORCO FOR C/O L HIP PAIN RATED 8/10. PO DULCOLAX ALSO ADMINISTERED FOR NO BM SINCE 06/30. WILL MONITOR EFFECTIVENESS. BED LEFT LOCKED IN LOW POSITION. BED ALARM INTACT. CALL LIGHT IN REACH.
--- NOTE | 2019-07-06 05:43 | NUR ---
EARLIER MEDICATION EFFECTIVE PER PT. WILL MONITOR. CALL LIGHT IN REACH. BED ALARM INTACT. SCDs IN USE.
[2019-07-06 06:26] LABS: BASO # 0.1 10*3/uL (0.0-0.1); BASO % 0.8 % (0.0-1.0); EOS # 0.3 10*3/uL (0.0-0.4); EOS % 2.9 % (1.0-4.0); HEMATOCRIT 22.5 % (37.0-47.0); LYMPH # 2.2 10*3/uL (1.3-4.4); LYMPH % 24.1 % (27.0-41.0); MEAN CORPUSCULAR HGB 25.8 pg (27.0-31.0); MEAN CORPUSCULAR HGB CONC 31.1 g/dl (33.0-37.0); MEAN PLATELET VOLUME 9.9 fl (9.6-12.3); MONO # 1.3 10*3/uL (0.1-1.0); MONO % 14.4 % (3.0-9.0); NEUT # 5.2 10*3/uL (2.3-7.9); NEUT % 56.3 % (47.0-73.0); PLATELET COUNT AUTOMATED 485 10*3/uL (130-400); RED BLOOD COUNT 2.71 10*6/uL (4.10-5.10); RED CELL DISTRI WIDTH 15.6 % (0-14.5); WHITE BLOOD COUNT 9.2 10*3/uL (4.8-10.8)
[2019-07-06 06:35] LABS: CREATININE 1.19 mg/dL (0.55-1.02); POTASSIUM 4.4 mmol/L (3.5-5.1)
--- NOTE | 2019-07-06 07:59 | NUR ---
CARD BRUSHER faxed updates to [facility]. -HORACIO Donnelly
--- NOTE | 2019-07-06 08:20 | NUR ---
24 HR chart check completed.
--- NOTE | 2019-07-06 10:13 | NUR ---
OT NOTE Pt was seen this A.M. 1:1 for 20 minute OT session. Upon arrival pt was supine in bed. Pt identified by name and and had complaints of 5/10 L hip pain. Pt transferred supine to sit EOB with Criss for assist with BLE. Sit to stand completed from the bed level with Criss and use of w/w. Functional mobility completed to the bedside commode with CGA and use of w/w. Pt required min verbal prompts for following 50% weight bearing to the LLE. Pt transferred on/off bedside commode with Criss and use of w/w. Challenged pt's dynamic stanidng tolerance needed for increased I in self care tasks and functional transfers and pt was able to tolerate aprox 2 minutes before sitting due to fatigue and pain. Pt was left sitting upright in the recliner with call light in hand, tray table in place, and body alarm activated for safety. Continue with rec D/C plan to SNF. RAQUEL Miranda
--- NOTE | 2019-07-06 10:13 | NUR ---
PHYSICAL THERAPY Patient presented to therapy with report of a pain level of 5/10 in the L hip. Patient was identified by name and on wristband. Patient gives informed consent for treatment. Patient was supine in bed with head of bed elevated and bed alarm activated. Patient performed supine to sitting at EOB with MIN A X 1. Patient sat on EOB unassisted. Patient sit to stand from EOB with MIN A X 1 because she did not want to use the walker to stand. Patient transferred to bedside chair with MIN A X 1 without Wh Walker. Patient was rolled out into hallway in bedside chair. Patient sit to stand from rolling chair with MIN A X 1 with verbal cues for pushing off armrests of chair with hands. Patient ambulated with Wh Walker and CGA X 2 and rolling chair follow for 18' x 1 with verbal cues for upright posture, maintaining 50% wt bearing on L LE, and for pushing down on walker with hands. Patient was left in bedside chair wit hchair alarm tested and attached ot patient, call light within reach, and LEs elvated. Tray table within reach. Patient has visitor in room. Patient was 1:1 with this RADIATOR FITTER for 20 minutes total. LEEANN CARMONA RADIATOR FITTER
--- NOTE | 2019-07-06 11:01 | NUR ---
NORCO GIVEN PO FOR PAIN REQUESTED PER PATIENT. PAIN IS RATED 7/10
--- NOTE | 2019-07-06 11:23 | NUR ---
PT CAN GO TO [facility] WHEN MEDICALLY STABLE. HAS COMPLETED 3 NIGHT STAY. WILL CONTINUE TO FOLLOW.
--- NOTE | 2019-07-06 12:58 | NUR ---
OT NOTE Attempted to see pt this P.M. for OT session and upon arrival pt was recieving a blood transfusion. Will check back at a later time/date and continue with POC as able. HERSON Miranda/[facility]
--- NOTE | 2019-07-06 13:00 | NUR ---
MEDICATION EFFECTIVE FOR PAIN PER PT.
--- NOTE | 2019-07-06 14:11 | NUR ---
PHYSICAL THERAPY Patient was recieving a blood transfusion at this time. N o therapy provided for this afternoon for this reason. Blood transfusion started at 1:50 PM. Will check back at a later date. LEEANN CARMONA ECHOCARDIOGRAPHY RADIOLOGY TECHNOLOGIST
--- NOTE | 2019-07-06 16:34 | NUR ---
OCCUPATIONAL THERAPY CO-SIGN I approve of the Occupational Therapy notes written above. TAM BAKER OTR/[facility]
--- NOTE | 2019-07-06 18:12 | NUR ---
PT STATES HER PAIN IS A 9/10. NORCO 10 MG PO IS GIVEN PER PATIENT REQUEST.
[2019-07-07] VITALS: BP 118/48
--- NOTE | 2019-07-07 06:25 | NUR ---
PO NORCO 10/325 ADMINISTERED PER PRN ORDER FOR C/O L HIP PAIN RATED 6/10. PT ASSISTED UP TO BSC AND BACK INTO BED WITH ASSIST X2 USING TOUCH TOE 50% WT BEARING ON LLE. SCDs RECONNECTED AND IN USE. DRESSINGS TO L ELBOW, L FOREARM, AND LEFT HIP SURGICAL INCISION CHANGED PER ORDER. WILL CONTINUE TO MONITOR. BED LEFT LOCKED IN LOW POSITION. BED ALARM INTACT. CALL LIGHT LEFT IN REACH.
[2019-07-07 06:36] LABS: BASO # 0.1 10*3/uL (0.0-0.1); BASO % 0.7 % (0.0-1.0); EOS # 0.2 10*3/uL (0.0-0.4); EOS % 2.8 % (1.0-4.0); HEMATOCRIT 23.8 % (37.0-47.0); HEMOGLOBIN 7.6 g/dl (12.0-16.0); LYMPH # 1.7 10*3/uL (1.3-4.4); LYMPH % 25.2 % (27.0-41.0); MEAN CELL VOLUME 82.9 fl (81.0-99.0); MEAN CORPUSCULAR HGB 26.5 pg (27.0-31.0); MEAN CORPUSCULAR HGB CONC 31.9 g/dl (33.0-37.0); MEAN PLATELET VOLUME 10.5 fl (9.6-12.3); MONO # 0.8 10*3/uL (0.1-1.0); MONO % 11.8 % (3.0-9.0); NEUT % 57.8 % (47.0-73.0); PLATELET COUNT AUTOMATED 413 10*3/uL (130-400); RED BLOOD COUNT 2.87 10*6/uL (4.10-5.10); RED CELL DISTRI WIDTH 15.9 % (0-14.5); WHITE BLOOD COUNT 6.9 10*3/uL (4.8-10.8)
[2019-07-07 06:46] LABS: BUN 25 mg/dl (7-24); CHLORIDE 99 mmol/L (98-107); CREATININE 0.95 mg/dL (0.55-1.02); POTASSIUM 4.4 mmol/L (3.5-5.1); SODIUM 129 mmol/L (136-145)
--- NOTE | 2019-07-07 07:35 | NUR ---
BUMPER OPERATOR faxed updates to [facility]. Patient is able to go to [facility] when medically stable. -HORACIO Donnelly
[2019-07-07 08:00] VITALS: BP 109/42
--- NOTE | 2019-07-07 08:00 | NUR ---
Patient resting quietly with no c/o discomfort. Respirations easy and regular. Vital signs stable. No overt distress. JAMES TEJADA
--- NOTE | 2019-07-07 08:40 | NUR ---
PHYSICAL THERAPY Patient seen this am 1;1 for therapy visit and was supine in bed upon therapist arrival. Patient identified by name / and and reports 7/10 L hip pain / stiffness. Patient educated on importance of hip precations and increased AROM to promote improved circulation. Patient transfers supine to sit EOB with MIN A and sit to stand MIN A x 1. Patient ambulates with use of wh walker, 50% WB on L LE, CGA, demonstrating slow, "step to" gait pattern, 25'x 1. Patient fatigues quickly and needed bedside chair to be placed across room for seated rest as patient unable to return to bed. Patient remained in chair with body alarm and transported via chair to her Husbands room next door for a visit per nursing permission. Patient reports no change in pain c/o and will continue per POC as tolerated, total treatment time 14 minutes. Castro Blackman, PHOTOGRAPHIC ENLARGER OPERATOR
--- NOTE | 2019-07-07 09:00 | NUR ---
OT NOTE Pt was seen this A.M. 1:1 for 25 minute OT session. Upon arrival pt was supine in bed. Pt identified by name and and had complaints of 7/10 L hip pain. Pt transferred supine to sit EOB with Criss for assist with LLE. Sit to stand completed from bed level with Criss and use of w/w for UE support. Functional mobility completed into the bathroom with CGA and use of w/w with verbal prompts for proper step sequence. Pt required three standing rest breaks throughout mobility. Pt transferred on to standard commode with CGA and use of grab bar for UE support. Clothing management completed with Criss and toilet hygiene completed with CGA while standing. Pt then transferred off standard commode with Criss due to low surface. Pt then stood sink side while washing her hands and face with CGA for safety. Functional mobility then completed back to the recliner where she was left sitting upright with call light in hand, tray table in place, and body alarm activated for safety. Continue with rec D/C plan to SNF. RAQUEL Miranda
--- NOTE | 2019-07-07 11:13 | NUR ---
OT NOTE Pt was seen this A.M. 1:1 for second OT session consisting of 20 minutes. Upon arrival pt was sitting upright in the recliner. Pt identified by name and . Pt donned B socks with use of sock aid and SBA with one verbal prompt for sequencing. Sit to stand completed from chair level with Criss and use of w/w for UE support. Functional mobility was then completed into the bathroom with CGA and use of w/w with 100% carryover of 50% weight bearing to LLE. Pt transferred on/off standard commode with CGA and use of grab bar. Clothing management completed with CGA and toilet hygiene completed with SBA while seated. Pt then stood sink side while washing her hands with CGA. Pt was left sitting upright in the recliner with call light in hand, tray table in place, and body alarm activated for safety. Continue with rec D/C plan to SNF. RAQUEL Miranda
[2019-07-07] MEDS ORDERED: Zestril,Prinivi40 MG PO (11:35)
[2019-07-07] MEDS ORDERED: NORCO 5-325 TA1 EACH PO (11:35)
--- NOTE | 2019-07-07 11:40 | NUR ---
MEDICATED WITH PO NORCO ORDERED PER PT REQUEST FOR C/O PAIN TO L HIP RATED 7/10.
[2019-07-07 12:00] VITALS: BP 121/38
--- NOTE | 2019-07-07 12:09 | NUR ---
PLAN IF FOR DISCHARGE TO [facility] TODAY. WILL CONTINUE TO FOLLOW.
--- NOTE | 2019-07-07 13:15 | NUR ---
PT REFUSING WOUND PICTURES THEY WERE JUST DRESSED TODAY. SHE DOES NOT WANT THEM PULLED OFF AGAIN HERE AND AGAIN AT THE [place].
--- NOTE | 2019-07-07 13:33 | NUR ---
MEDICATION EFFECTIVE FOR PAIN.
--- NOTE | 2019-07-07 14:15 | NUR ---
PT LEAVING IN CARE OF AMBULANCE.
--- NOTE | 2019-07-07 14:30 | NUR ---
BRANDI LEFT BEHIND AND WILL BE SENT WITH AMBULETTE TO [facility].
--- NOTE | 2019-07-07 15:15 | NUR ---
[facility], QUESTIONS ANSWERED.
--- NOTE | 2019-07-09 15:57 | NUR ---
OCCUPATIONAL THERAPY CO-SIGN I approve of the Occupational Therapy notes written above. TAM BAKER OTR/[facility]
--- NOTE | 2019-07-09 16:35 | NUR ---
PHYSICAL THERAPY CO-SIGN I approve of the Physical Therapy notes written above. JOSE MIGUEL PETERSON, PT, DPT
== END 2019-07-07 14:15 | disposition other institution (70) | DRG 469 ==
LOC: ED 12:17 → EDHOLD 14:01 → 5E 14:01
PROVIDERS: Emergency Medicine; Internal Medicine; Registered Nurse; ADMIT Family Medicine
PROC: 3E0T3BZ Introduction of Anesthetic Agent into Peripheral Nerves and Plexi, Percutaneous Approach (ICD-10-PCS; principal; 2019-07-01)
PROC: 0SRS019 Replacement of Left Hip Joint, Femoral Surface with Metal Synthetic Substitute, Cemented, Open Approach (ICD-10-PCS; principal; 2019-07-01)
PROC: 30233N1 Transfusion of Nonautologous Red Blood Cells into Peripheral Vein, Percutaneous Approach (ICD-10-PCS; 2019-07-06)
DX: S72.012A Unspecified intracapsular fracture of left femur, initial encounter for closed fracture (principal); N17.0 Acute kidney failure with tubular necrosis; E87.1 Hypo-osmolality and hyponatremia; E44.1 Mild protein-calorie malnutrition; S16.1XXA Strain of muscle, fascia and tendon at neck level, initial encounter; S00.93XA Contusion of unspecified part of head, initial encounter; F32.9 Major depressive disorder, single episode, unspecified; E78.00 Pure hypercholesterolemia, unspecified; K21.9 Gastro-esophageal reflux disease without esophagitis; N18.3 Chronic kidney disease, stage 3 (moderate); F03.90 Unspecified dementia, unspecified severity, without behavioral disturbance, psychotic disturbance, mood disturbance, and anxiety; D64.9 Anemia, unspecified; E11.65 Type 2 diabetes mellitus with hyperglycemia; W18.30XA Fall on same level, unspecified, initial encounter; Y93.89 Activity, other specified; Y92.89 Other specified places as the place of occurrence of the external cause; Y99.8 Other external cause status; Z79.82 Long term (current) use of aspirin; Z88.0 Allergy status to penicillin; Z88.2 Allergy status to sulfonamides; Z79.84 Long term (current) use of oral hypoglycemic drugs

== ENCOUNTER 2019-07-26 10:09 | Inpatient (IN) | payer MEDICARE ==
[~2019-07-26] VITALS: Ht 157.5 cm; Wt 74.5 kg
[2019-07-26] VITALS (15 sets, daily range): BP systolic 133–155; BP diastolic 50–79
[~2019-07-26 10:09] MED LIST: CYCLOBENZAPRINE10 MG PO; DONEPEZIL HYDRO10 M1 PO; ECOTRIN325 M1 PO; ENALAPRIL MALEA20 MG PO; GAS-X125 MG PO; LASIX40 MG PO; METFORMIN HYDR500 MG PO; NEXIUM40 MG PO; NORCO 5-325 TA1 EACH PO; PAXIL10 MG PO; PRAVACHOL40 MG PO; PROAIR HFA8.5 GM INH; SLOW-MAG71.5 MG PO; Zestril,Prinivi40 MG PO
[2019-07-26 10:33] LABS: BASO % 0.9 % (0.0-1.0); EOS # 0.1 10*3/uL (0.0-0.4); HEMATOCRIT 23.1 % (37.0-47.0); LYMPH # 1.6 10*3/uL (1.3-4.4); LYMPH % 34.7 % (27.0-41.0); MEAN CELL VOLUME 84.6 fl (81.0-99.0); MEAN CORPUSCULAR HGB 24.2 pg (27.0-31.0); MEAN CORPUSCULAR HGB CONC 28.6 g/dl (33.0-37.0); MEAN PLATELET VOLUME 9.9 fl (9.6-12.3); MONO # 0.4 10*3/uL (0.1-1.0); MONO % 9.3 % (3.0-9.0); NEUT # 2.4 10*3/uL (2.3-7.9); NEUT % 52.9 % (47.0-73.0); PLATELET COUNT AUTOMATED 275 10*3/uL (130-400); RED BLOOD COUNT 2.73 10*6/uL (4.10-5.10); RED CELL DISTRI WIDTH 16.3 % (0-14.5); WHITE BLOOD COUNT 4.6 10*3/uL (4.8-10.8)
[2019-07-26 10:38] LABS: HEMOGLOBIN 6.6 g/dl (12.0-16.0); RETICULOCYTE % 3.42 % (0.50-2.50)
--- NOTE | 2019-07-26 10:38 | NUR ---
[facility] @ 6.6 PER LAB, DR TC CASTILLO NOTIFIED.
[2019-07-26 10:45] LABS: ACT PARTIAL THROMBO TIME 27.2 SECONDS (20.0-32.1); INTERNATIONAL NORM RATIO 1.1 (2.0-3.5)
[2019-07-26 10:51] LABS: BUN 10 mg/dl (7-24); CHLORIDE 105 mmol/L (98-107); SODIUM 136 mmol/L (136-145)
[2019-07-26 10:53] LABS: IRON 21 ug/dL (50-170); TOTAL IRON BINDING CAPACITY 244 ug/dl (250-450)
--- NOTE | 2019-07-26 10:55 | NUR ---
A 74, admitted to 5E, under the services of Dr. SPENCER CASTILLO,ELEN Rivas with a diagnosis of ANEMIA AND PERIPHERAL EDEMA. Chief complaint is CAME FOR OUTPATIENT BLOOD TRANSFUSION. Patient arrived via stretcher from ER. Monitor applied. Initial assessment completed. Vital signs taken and recorded. DR. SPENCER CASTILLO,ELEN Rivas notified of admission to the unit. Orders received. See assessment for past medical history, medications and allergies. Patient and/or family oriented to unit. Clothing/patient valuable form completed. SIA LADD
[2019-07-26 11:07] LABS: BASOPHILS 1 % (0-1); TOTAL CELLS COUNTED 100 #CELLS
[2019-07-26 11:08] LABS: PLATELET SUFFICIENCY NORMAL (NORMAL); POLYCHROMASIA SLIGHT; ROULEAUX MODERATE; SCHISTOCYTES FEW
[2019-07-26] MEDS ORDERED: CYCLOBENZAPRINE10 MG PO (11:43)
[2019-07-26] MEDS ORDERED: NORCO 5-325 TA1 EACH PO (11:45)
[2019-07-26] MEDS ORDERED: TYLENOL EXTRA500 MG PO (11:47)
--- NOTE | 2019-07-26 15:02 | NUR ---
HORACIO was notified by [facility] that the patient is scheduled to have an appointment with Dr. Marshall tomorrow afternoon. HORACIO spoke with RN-Thalia, who stated Dr. Finney would need to be notified to put in the consult. HORACIO spoke with Dr. Finney while he was on the floor. -HORACIO Donnelly
--- NOTE | 2019-07-26 16:53 | NUR ---
Pt taken to surgery dept at this time with blood transfusion running.
--- NOTE | 2019-07-26 17:47 | NUR ---
PT REMAINS IN SURGERY DEPT FOR EGD.
[2019-07-27] VITALS: BP 149/61
[2019-07-27 04:00] VITALS: BP 126/56
[2019-07-27 06:50] LABS: BASO # 0.1 10*3/uL (0.0-0.1); EOS # 0.1 10*3/uL (0.0-0.4); EOS % 2.4 % (1.0-4.0); HEMATOCRIT 27.8 % (37.0-47.0); HEMOGLOBIN 8.5 g/dl (12.0-16.0); LYMPH # 1.6 10*3/uL (1.3-4.4); LYMPH % 32.5 % (27.0-41.0); MEAN CORPUSCULAR HGB CONC 30.6 g/dl (33.0-37.0); MEAN PLATELET VOLUME 10.6 fl (9.6-12.3); MONO # 0.6 10*3/uL (0.1-1.0); MONO % 11.3 % (3.0-9.0); NEUT # 2.7 10*3/uL (2.3-7.9); NEUT % 52.6 % (47.0-73.0); PLATELET COUNT AUTOMATED 261 10*3/uL (130-400); RED BLOOD COUNT 3.27 10*6/uL (4.10-5.10); RED CELL DISTRI WIDTH 15.9 % (0-14.5); WHITE BLOOD COUNT 5.1 10*3/uL (4.8-10.8)
--- NOTE | 2019-07-27 09:08 | NUR ---
ABEBE IN DR NICHOLS OFFICE NOTIFIED OF NEW CONSULT ORDER.
--- NOTE | 2019-07-27 10:30 | NUR ---
Behavioral Assistant in to see patient. She is currently at [facility] for rehab and plans to return there upon discharge. She states she is ambulatory with a walker. When medically stable she will be discharged to [facility]. bead worker sewing following.
[2019-07-27 12:00] VITALS: BP 139/59
--- NOTE | 2019-07-27 12:14 | NUR ---
PT MEDICATED WITH NORCO AT HER REQUEST FOR LEFT HIP SURGICAL SITE PAIN.
[2019-07-27 16:00] VITALS: BP 144/55
--- NOTE | 2019-07-27 19:21 | NUR ---
PT MEDICATED WITH PO NORCO FOR C/O PAIN IN L HIP AND IN BACK RATED 9/10. WILL MONITOR EFFECTIVENESS. CALL LIGHT LEFT IN REACH.
[2019-07-27 20:00] VITALS: BP 141/62
--- NOTE | 2019-07-27 20:19 | NUR ---
CLINICAL TRIALS SPECIALIST CALLED STATING PATIENT LOOKED TO BE IN AFIB. PT DOES NOT HAVE HISTORY OF AFIB. RN IN TO SEE PATIENT. ELECTRODES REPLACED FOR CLEARER IMAGE. UPON AUSCULTATION, PATIENT DOES HAVE AN OCCASIONAL IRREGULAR BEAT, BUT UNDERLYING REGULAR RHYTHM HEARD. STAT EKG ORDERED TO RULE OUT AFIB. EKG SHOWED NORMAL SINUS. RN REVIEWED MULTIPLE CARDIAC STRIPS. PT REMAINS IN NSR WITH PACs. PT DENIES ANY CHEST PAIN, PALPITATIONS, SOB, OR ANY OTHER NEW/WORSENING SYMPTOMS. WILL CONTINUE TO MONITOR. CALL LIGHT IN REACH.
--- NOTE | 2019-07-27 21:16 | NUR ---
PT STATES EARLIER NORCO HELPED SOME. PT REQUESTING ADDITIONAL TYLENOL TO BE GIVEN. SHE STATES THIS HELPS AT THE HALFWAY. NOTIFIED. NEW ORDER RECEIVED FOR PO TYLENOL Q8H PRN.
[2019-07-28] VITALS: BP 133/53
--- NOTE | 2019-07-28 01:18 | NUR ---
PT ASLEEP IN BED. RESPIRATIONS EASY. NO S/S OF DISTRESS NOTED. WILL MONITOR. CALL LIGHT IN REACH.
--- NOTE | 2019-07-28 04:06 | NUR ---
PO NORCO ADMINISTERED AT THIS TIME FOR C/O L HIP PAIN RATED 8/10. WILL MONITOR EFFECTIVENESS. CALL LIGHT IN REACH.
[2019-07-28 06:22] LABS: BASO % 0.7 % (0.0-1.0); EOS # 0.2 10*3/uL (0.0-0.4); EOS % 3.5 % (1.0-4.0); HEMATOCRIT 29.2 % (37.0-47.0); HEMOGLOBIN 8.9 g/dl (12.0-16.0); LYMPH # 1.8 10*3/uL (1.3-4.4); LYMPH % 32.1 % (27.0-41.0); MEAN CELL VOLUME 84.4 fl (81.0-99.0); MEAN CORPUSCULAR HGB 25.7 pg (27.0-31.0); MEAN CORPUSCULAR HGB CONC 30.5 g/dl (33.0-37.0); MEAN PLATELET VOLUME 10.1 fl (9.6-12.3); MONO # 0.7 10*3/uL (0.1-1.0); MONO % 12.8 % (3.0-9.0); NEUT # 2.8 10*3/uL (2.3-7.9); NEUT % 50.5 % (47.0-73.0); PLATELET COUNT AUTOMATED 256 10*3/uL (130-400); RED BLOOD COUNT 3.46 10*6/uL (4.10-5.10); RED CELL DISTRI WIDTH 16.5 % (0-14.5); WHITE BLOOD COUNT 5.5 10*3/uL (4.8-10.8)
--- NOTE | 2019-07-28 07:49 | NUR ---
Patient is short term at [facility]. EQUIPMENT MECHANIC SPECIALIST faxed clinical updates to [facility]. -HORACIO Donnelly
[2019-07-28 08:00] VITALS: BP 143/52
--- NOTE | 2019-07-28 08:48 | NUR ---
PT MEDICATED WITH PO TYLENOL PER PRN ORDER FOR C/O LEFT HIP PAIN. RATES PAIN 5/10. WILL MONITOR EFFECTIVENESS.
--- NOTE | 2019-07-28 09:00 | NUR ---
Discussed discharge planning with Dr. Finney. Explained Dr. Bingham saw patient yesterday and stated patient needs to continue weight bearing until patient sees ortho again and x-rays can be ordered as an outpatient. Her Hgb is stable at 8.9. Explained patient can be discharged to [facility] when medically stable.
--- NOTE | 2019-07-28 09:24 | NUR ---
PHYSICAL THERAPY Pt currently getting iron via IV. Will attempt at a later time. thank you Cierra Farley, PT, DPT
[2019-07-28] MEDS ORDERED: FEROSUL325 MG PO (10:31)
[2019-07-28] MEDS ORDERED: HYDROCODONE-AC1 EAC1 PO (10:40)
[2019-07-28 12:00] VITALS: BP 158/52
--- NOTE | 2019-07-28 12:06 | NUR ---
LATEX FOAM WORKER notified of patients discharge. LATEX FOAM WORKER spoke with RN-Amena. LATEX FOAM WORKER reached out to [facility] to transport the patient. They are able to transport at 12:30pm today. LATEX FOAM WORKER notified the RN, [facility], and next of kin alanna roth. LATEX FOAM WORKER will fax discharge orders to [facility] and a demographics to [facility]. -HORACIO Donnelly
--- NOTE | 2019-07-28 12:18 | NUR ---
Discharge instructions reviewed with patient/family. Patient receptive and verbalizes understanding. Follow-up care arranged. Written instructions given to patient/family. KEITH LOYA.
--- NOTE | 2019-07-28 12:22 | NUR ---
NORCO GIVEN PER PRN ORDER FOR C/O LEFT HIP PAIN. RATES PAIN 9/10. WILL MONITOR EFFECTIVENESS.
--- NOTE | 2019-07-28 12:34 | NUR ---
AMBULANCE UNABLE TO TAKE PATIENT TO [facility] DUE TO PATIENT BEING ABLE TO AMBULATE. [facility] WILL HAVE TO PROVIDE TRANSPORT.
--- NOTE | 2019-07-28 13:11 | NUR ---
PHYSICAL THERAPY Pt sitting at bedside chair, fully dressed and ready for discharge. Thank you Cierra Farley, PT, DPT
--- NOTE | 2019-07-28 13:13 | NUR ---
[facility] arrived to take the patient to [facility]. Patient was found standing and they refused to transport the patient. BATCH OPERATOR contacted [facility] who stated their tow driver was on their way to transport the patient back to their facility. BATCH OPERATOR notified work clerk of courtshelby Roland and contacted patients next of kin alanna. -HORACIO Donnelly
--- NOTE | 2019-07-28 13:28 | NUR ---
TRANSPORT FROM [facility] HERE TO TAKE PATIENT TO [place]. BELONGINGS SENT WITH PATIENT.
--- NOTE | 2019-07-28 13:31 | NUR ---
MESSAGE LEFT FOR BRASS SORTER AT [facility] REGARDING NURSE TO NURSE REPORT.
== END 2019-07-28 13:31 | disposition other institution (70) | DRG 812 ==
LOC: ED 10:09 → 5E 10:26 → EDHOLD 10:26 → 5E 10:38
PROVIDERS: Emergency Medicine; ADMIT Internal Medicine
PROC: 0DB68ZX Excision of Stomach, Via Natural or Artificial Opening Endoscopic, Diagnostic (ICD-10-PCS; principal; 2019-07-26)
PROC: 30233N1 Transfusion of Nonautologous Red Blood Cells into Peripheral Vein, Percutaneous Approach (ICD-10-PCS; principal; 2019-07-26)
DX: D50.9 Iron deficiency anemia, unspecified (principal); F33.9 Major depressive disorder, recurrent, unspecified; C90.00 Multiple myeloma not having achieved remission; K44.9 Diaphragmatic hernia without obstruction or gangrene; K29.70 Gastritis, unspecified, without bleeding; E78.2 Mixed hyperlipidemia; Z96.642 Presence of left artificial hip joint; K21.0 Gastro-esophageal reflux disease with esophagitis; K25.9 Gastric ulcer, unspecified as acute or chronic, without hemorrhage or perforation; E78.00 Pure hypercholesterolemia, unspecified; Z88.2 Allergy status to sulfonamides; Z88.0 Allergy status to penicillin; Z88.8 Allergy status to other drugs, medicaments and biological substances; Z79.82 Long term (current) use of aspirin; Z79.899 Other long term (current) drug therapy; Z98.41 Cataract extraction status, right eye; Z98.42 Cataract extraction status, left eye; Z80.9 Family history of malignant neoplasm, unspecified

== ENCOUNTER → 2019-08-13 | Outpatient (CLI) | payer MEDICARE ==
[~2019-08-13] MED LIST changes: +FEROSUL325 MG PO; +HYDROCODONE-AC1 EAC1 PO; +TYLENOL EXTRA500 MG PO
== END | disposition home or self-care (01) ==
LOC: RAD 00:23
DX: S72.012D Unspecified intracapsular fracture of left femur, subsequent encounter for closed fracture with routine healing (principal); X58.XXXD Exposure to other specified factors, subsequent encounter; Z96.642 Presence of left artificial hip joint

== ENCOUNTER 2019-12-08 20:02 | Inpatient (IN) | payer MEDICARE ==
[~2019-12-08] VITALS: Ht 160 cm; Wt 74.8 kg
[2019-12-08 20:03] VITALS: BP 106/36
[2019-12-08 22:20] VITALS: BP 110/48
[2019-12-09] VITALS: BP 140/49
[2019-12-09] MEDS ORDERED: FUROSEMIDE40 MG PO (00:59)
[2019-12-09] MEDS ORDERED: KLOR-CON M2020 ME1 PO (01:01)
[2019-12-09] MEDS ORDERED: Metolazone5 MG PO (01:07)
[2019-12-09] MEDS ORDERED: REMERON15 M2 PO (01:08)
[2019-12-09] MEDS ORDERED: FLORASTOR250 MG PO (01:10)
[2019-12-09] MEDS ORDERED: ZYRTEC10 M3 PO (01:10)
[2019-12-09] MEDS ORDERED: ONDANSETRON4 MG PO (01:12)
[2019-12-09] MEDS ORDERED: TORSEMIDE10 MG PO (01:13)
[2019-12-09] MEDS ORDERED: METOPROLOL TART75 MG PO (01:14)
[2019-12-09] MEDS ORDERED: DIABETIC T100 MG/51 PO (01:16)
[2019-12-09] MEDS ORDERED: XOPENEX0.31 MG/3 INH (01:17)
[2019-12-09] MEDS ORDERED: PULMICORT RESP0.5 M1 INH (01:20)
[2019-12-09] MEDS ORDERED: [UNRECOGNIZED DRUG - OTHER] PO (01:20)
[2019-12-09] MEDS ORDERED: LAC-HYDRIN FIV226 GM TP (01:21)
[2019-12-09] MEDS ORDERED: MAGNESIUM400 M1 PO (01:22)
[2019-12-09] MEDS ORDERED: PROTONIX40 MG PO (01:24)
[2019-12-09] MEDS ORDERED: ELIQUIS5 M1 PO (01:25)
[2019-12-09] MEDS ORDERED: ARICEPT10 M1 PO (01:25)
[2019-12-09] MEDS ORDERED: ROXICODONE5 MG PO (01:27)
[2019-12-09] MEDS ORDERED: HUMALOG100 UNIT/2 SC (01:35)
[2019-12-09 06:12] LABS: BASO # 0.1 10*3/uL (0.0-0.1); BASO % 1.6 % (0.0-1.0); EOS # 0.1 10*3/uL (0.0-0.4); EOS % 1.5 % (1.0-4.0); HEMATOCRIT 31.8 % (37.0-47.0); HEMOGLOBIN 9.8 g/dl (12.0-16.0); LYMPH # 2.9 10*3/uL (1.3-4.4); LYMPH % 37.7 % (27.0-41.0); MEAN CELL VOLUME 94.1 fl (81.0-99.0); MEAN CORPUSCULAR HGB CONC 30.8 g/dl (33.0-37.0); MEAN PLATELET VOLUME 11.7 fl (9.6-12.3); MONO # 0.7 10*3/uL (0.1-1.0); MONO % 9.4 % (3.0-9.0); NEUT # 3.8 10*3/uL (2.3-7.9); NEUT % 49.5 % (47.0-73.0); PLATELET COUNT AUTOMATED 219 10*3/uL (130-400); RED BLOOD COUNT 3.38 10*6/uL (4.10-5.10); RED CELL DISTRI WIDTH 14.6 % (0-14.5); WHITE BLOOD COUNT 7.6 10*3/uL (4.8-10.8)
[2019-12-09 06:27] LABS: CREATININE 1.78 mg/dL (0.55-1.02); POTASSIUM 3.3 mmol/L (3.5-5.1)
[2019-12-09 06:30] LABS: PHOSPHOROUS 4.1 mg/dL (2.5-4.9)
[2019-12-09 08:00] VITALS: BP 116/66
[2019-12-09 12:00] VITALS: BP 109/53
[2019-12-09 16:00] VITALS: BP 117/48
[2019-12-09 20:00] VITALS: BP 104/48
[2019-12-10] VITALS: BP 106/42
[2019-12-10 06:04] LABS: CREATININE 1.85 mg/dL (0.55-1.02); POTASSIUM 3.4 mmol/L (3.5-5.1)
[2019-12-10 08:00] VITALS: BP 120/41
[2019-12-10 12:00] VITALS: BP 107/41
[2019-12-10 16:00] VITALS: BP 106/64
[2019-12-10 20:00] VITALS: BP 114/50
[2019-12-11] VITALS: BP 108/40
[2019-12-11 06:18] LABS: CREATININE 1.78 mg/dL (0.55-1.02); POTASSIUM 3.6 mmol/L (3.5-5.1)
[2019-12-11 08:00] VITALS: BP 106/40
[2019-12-11 11:00] VITALS: BP 96/48
[2019-12-11 16:00] VITALS: BP 129/51
[2019-12-11 20:00] VITALS: BP 117/44
[2019-12-12] VITALS: BP 98/50
[2019-12-12 06:20] LABS: BASO # 0.1 10*3/uL (0.0-0.1); EOS # 0.1 10*3/uL (0.0-0.4); EOS % 1.9 % (1.0-4.0); HEMATOCRIT 26.8 % (37.0-47.0); HEMOGLOBIN 8.4 g/dl (12.0-16.0); LYMPH # 2.9 10*3/uL (1.3-4.4); LYMPH % 43.9 % (27.0-41.0); MEAN CELL VOLUME 91.5 fl (81.0-99.0); MEAN CORPUSCULAR HGB 28.7 pg (27.0-31.0); MEAN CORPUSCULAR HGB CONC 31.3 g/dl (33.0-37.0); MEAN PLATELET VOLUME 11.4 fl (9.6-12.3); MONO # 0.7 10*3/uL (0.1-1.0); MONO % 9.9 % (3.0-9.0); NEUT # 2.9 10*3/uL (2.3-7.9); PLATELET COUNT AUTOMATED 182 10*3/uL (130-400); RED BLOOD COUNT 2.93 10*6/uL (4.10-5.10); RED CELL DISTRI WIDTH 14.6 % (0-14.5); WHITE BLOOD COUNT 6.7 10*3/uL (4.8-10.8)
[2019-12-12 06:49] LABS: CREATININE 1.58 mg/dL (0.55-1.02); POTASSIUM 3.3 mmol/L (3.5-5.1)
[2019-12-12 08:00] VITALS: BP 116/47
[2019-12-12 12:00] VITALS: BP 105/40
[2019-12-12 16:00] VITALS: BP 101/37
[2019-12-12 20:00] VITALS: BP 105/44
[2019-12-13] VITALS: BP 96/42
[2019-12-13 06:50] LABS: BASO # 0.1 10*3/uL (0.0-0.1); BASO % 1.2 % (0.0-1.0); EOS # 0.1 10*3/uL (0.0-0.4); EOS % 1.7 % (1.0-4.0); HEMATOCRIT 28.8 % (37.0-47.0); LYMPH # 2.6 10*3/uL (1.3-4.4); LYMPH % 43.8 % (27.0-41.0); MEAN CELL VOLUME 92.3 fl (81.0-99.0); MEAN CORPUSCULAR HGB 28.8 pg (27.0-31.0); MEAN CORPUSCULAR HGB CONC 31.3 g/dl (33.0-37.0); MEAN PLATELET VOLUME 11.7 fl (9.6-12.3); MONO # 0.6 10*3/uL (0.1-1.0); MONO % 9.6 % (3.0-9.0); NEUT # 2.6 10*3/uL (2.3-7.9); NEUT % 43.5 % (47.0-73.0); PLATELET COUNT AUTOMATED 188 10*3/uL (130-400); RED BLOOD COUNT 3.12 10*6/uL (4.10-5.10); RED CELL DISTRI WIDTH 14.6 % (0-14.5); WHITE BLOOD COUNT 5.9 10*3/uL (4.8-10.8)
[2019-12-13 06:54] LABS: CREATININE 1.35 mg/dL (0.55-1.02); POTASSIUM 3.3 mmol/L (3.5-5.1)
[2019-12-13 08:00] VITALS: BP 123/50
[2019-12-13 10:16] VITALS: BP 104/47
[2019-12-13 12:00] VITALS: BP 96/40
[2019-12-13] MEDS ORDERED: CETIRIZINE HYDR10 MG PO (14:50)
[2019-12-13] MEDS ORDERED: METOPROLOL TART50 M1 PO (14:50)
[2019-12-13] MEDS ORDERED: LEVAQUIN500 M2 PO (18:45)
== END 2019-12-13 16:48 | disposition home health service (06) | DRG 563 ==
LOC: ED 20:02 → 4E 22:16 → EDHOLD 22:16 → 4E 23:03
PROVIDERS: Internal Medicine; Student in an Organized Health Care Education/Training Program; ADMIT Internal Medicine
DX: S43.001A Unspecified subluxation of right shoulder joint, initial encounter (principal); L03.115 Cellulitis of right lower limb; I50.32 Chronic diastolic (congestive) heart failure; L89.151 Pressure ulcer of sacral region, stage 1; L89.892 Pressure ulcer of other site, stage 2; E78.00 Pure hypercholesterolemia, unspecified; E73.9 Lactose intolerance, unspecified; G31.84 Mild cognitive impairment of uncertain or unknown etiology; F32.9 Major depressive disorder, single episode, unspecified; K21.9 Gastro-esophageal reflux disease without esophagitis; I48.0 Paroxysmal atrial fibrillation; E11.22 Type 2 diabetes mellitus with diabetic chronic kidney disease; N18.3 Chronic kidney disease, stage 3 (moderate); E11.65 Type 2 diabetes mellitus with hyperglycemia; R26.81 Unsteadiness on feet; W19.XXXA Unspecified fall, initial encounter; I89.0 Lymphedema, not elsewhere classified; Z88.0 Allergy status to penicillin; Z88.2 Allergy status to sulfonamides; Z88.8 Allergy status to other drugs, medicaments and biological substances; Z79.899 Other long term (current) drug therapy; Z79.01 Long term (current) use of anticoagulants; Z80.9 Family history of malignant neoplasm, unspecified; Y93.89 Activity, other specified; Y92.89 Other specified places as the place of occurrence of the external cause; Y99.8 Other external cause status; Z90.710 Acquired absence of both cervix and uterus

== ENCOUNTER 2019-12-27 16:31 | Inpatient (IN) | payer MEDICARE ==
[~2019-12-27] VITALS: Ht 160 cm; Wt 75.8 kg
[~2019-12-27 16:31] MED LIST changes: +ARICEPT10 M1 PO; +CETIRIZINE HYDR10 MG PO; +DIABETIC T100 MG/51 PO; +ELIQUIS5 M1 PO; +FLORASTOR250 MG PO; +FUROSEMIDE40 MG PO; +HUMALOG100 UNIT/2 SC; +KLOR-CON M2020 ME1 PO; +LAC-HYDRIN FIV226 GM TP; +LEVAQUIN500 M2 PO; +MAGNESIUM400 M1 PO; +METOPROLOL TART50 M1 PO; +METOPROLOL TART75 MG PO; +Metolazone5 MG PO; +ONDANSETRON4 MG PO; +PROTONIX40 MG PO; +PULMICORT RESP0.5 M1 INH; +REMERON15 M2 PO; +ROXICODONE5 MG PO; +TORSEMIDE10 MG PO; +XOPENEX0.31 MG/3 INH; +ZYRTEC10 M3 PO; +[UNRECOGNIZED DRUG - OTHER] PO
[2019-12-27 16:32] VITALS: BP 131/73
[2019-12-27 17:21] LABS: CREATININE 1.64 mg/dL (0.55-1.02)
[2019-12-27 17:23] VITALS: BP 119/55
[2019-12-27 17:44] LABS: ACT PARTIAL THROMBO TIME 36.9 SECONDS (20.0-32.1)
[2019-12-27 17:46] LABS: INTERNATIONAL NORM RATIO 5.8 (2.0-3.5)
[2019-12-27 18:02] LABS: TROPONIN I < 0.015 ng/ml (<0.045)
[2019-12-27 18:11] VITALS: BP 112/55
[2019-12-27 18:18] LABS: BASO # 0.1 10*3/uL (0.0-0.1); BASO % 1.2 % (0.0-1.0); EOS # 0.2 10*3/uL (0.0-0.4); EOS % 2.2 % (1.0-4.0); HEMATOCRIT 31.5 % (37.0-47.0); HEMOGLOBIN 9.9 g/dl (12.0-16.0); LYMPH # 2.5 10*3/uL (1.3-4.4); LYMPH % 25.7 % (27.0-41.0); MEAN CELL VOLUME 89.5 fl (81.0-99.0); MEAN CORPUSCULAR HGB 28.1 pg (27.0-31.0); MEAN CORPUSCULAR HGB CONC 31.4 g/dl (33.0-37.0); MEAN PLATELET VOLUME 10.8 fl (9.6-12.3); MONO % 10.6 % (3.0-9.0); NEUT # 5.9 10*3/uL (2.3-7.9); NEUT % 59.9 % (47.0-73.0); PLATELET COUNT AUTOMATED 291 10*3/uL (130-400); RED BLOOD COUNT 3.52 10*6/uL (4.10-5.10); RED CELL DISTRI WIDTH 15.9 % (0-14.5); WHITE BLOOD COUNT 9.8 10*3/uL (4.8-10.8)
[2019-12-27] MEDS ORDERED: WARFARIN SOD5 MG PO (18:32)
[2019-12-27 18:40] VITALS: BP 112/55
[2019-12-27 19:05] VITALS: BP 112/48
[2019-12-27] MEDS ORDERED: PROTONIX40 MG PO (19:18)
[2019-12-27] MEDS ORDERED: PAXIL10 MG PO (19:23)
[2019-12-27] MEDS ORDERED: FUROSEMIDE40 MG PO (19:24)
[2019-12-27] MEDS ORDERED: ROXICODONE5 MG PO (19:25)
[2019-12-27] MEDS ORDERED: POTASSIUM CHLO20 ME3 PO (19:26)
[2019-12-27] MEDS ORDERED: BUMETANIDE1 MG PO (19:28)
[2019-12-27 19:45] VITALS: BP 119/57
[2019-12-27] MEDS ORDERED: ZOFRAN4 MG PO (22:23)
[2019-12-27] MEDS ORDERED: DIABETIC T100 MG/51 PO (22:24)
[2019-12-27] MEDS ORDERED: XOPENEX0.31 MG/3 NEB (22:25)
[2019-12-27] MEDS ORDERED: DRONABINOL2.5 MG PO (22:25)
[2019-12-27] MEDS ORDERED: PULMICORT RESP0.5 MG INH (22:26)
[2019-12-27] MEDS ORDERED: LAC-HYDRIN FIV226 GM T (22:32)
[2019-12-27] MEDS ORDERED: LOPRESSOR50 M1 PO (22:35)
[2019-12-27] MEDS ORDERED: CETIRIZINE HYDR10 MG PO (22:37)
[2019-12-27] MEDS ORDERED: HYDROCODONE-AC1 EAC1 PO (23:03)
[2019-12-27] MEDS ORDERED: BUMETANIDE2 MG PO (23:04)
[2019-12-28] VITALS: BP 122/61
[2019-12-28 06:15] LABS: ALBUMIN 1.4 gm/dl (3.1-4.5); CREATININE 1.59 mg/dL (0.55-1.02); PHOSPHOROUS 4.4 mg/dL (2.5-4.9); POTASSIUM 3.8 mmol/L (3.5-5.1); TOTAL PROTEIN 5.1 gm/dL (6.4-8.2)
[2019-12-28 06:18] LABS: BASO # 0.1 10*3/uL (0.0-0.1); EOS # 0.2 10*3/uL (0.0-0.4); EOS % 2.2 % (1.0-4.0); HEMATOCRIT 25.5 % (37.0-47.0); LYMPH # 2.3 10*3/uL (1.3-4.4); LYMPH % 31.8 % (27.0-41.0); MEAN CELL VOLUME 89.2 fl (81.0-99.0); MEAN CORPUSCULAR HGB CONC 31.4 g/dl (33.0-37.0); MEAN PLATELET VOLUME 10.7 fl (9.6-12.3); MONO # 0.7 10*3/uL (0.1-1.0); MONO % 9.8 % (3.0-9.0); NEUT # 3.9 10*3/uL (2.3-7.9); NEUT % 54.8 % (47.0-73.0); PLATELET COUNT AUTOMATED 209 10*3/uL (130-400); RED BLOOD COUNT 2.86 10*6/uL (4.10-5.10); RED CELL DISTRI WIDTH 15.6 % (0-14.5); WHITE BLOOD COUNT 7.2 10*3/uL (4.8-10.8)
[2019-12-28 06:21] LABS: FREE T4 1.06 ng/dl (0.76-1.46); THYROID STIM HORMONE (HS) 1.74 uIU/ml (0.358-4.75)
[2019-12-28 06:33] LABS: ACT PARTIAL THROMBO TIME 44.7 SECONDS (20.0-32.1)
[2019-12-28 06:39] LABS: INTERNATIONAL NORM RATIO 5.3 (2.0-3.5)
[2019-12-28 08:00] VITALS: BP 118/68; BP 135/74
[2019-12-28 09:15] LABS: VITAMIN D, 25-HYDROXY 54.7 ng/mL (30-100)
[2019-12-28 12:00] VITALS: BP 120/70; BP 128/75
[2019-12-28 16:00] VITALS: BP 127/62
[2019-12-28 20:00] VITALS: BP 113/75
[2019-12-29] VITALS: BP 109/41
[2019-12-29 06:06] LABS: BASO # 0.1 10*3/uL (0.0-0.1); BASO % 1.3 % (0.0-1.0); EOS # 0.2 10*3/uL (0.0-0.4); EOS % 3.3 % (1.0-4.0); HEMATOCRIT 26.2 % (37.0-47.0); HEMOGLOBIN 8.3 g/dl (12.0-16.0); LYMPH # 2.1 10*3/uL (1.3-4.4); LYMPH % 34.7 % (27.0-41.0); MEAN CELL VOLUME 88.5 fl (81.0-99.0); MEAN CORPUSCULAR HGB CONC 31.7 g/dl (33.0-37.0); MEAN PLATELET VOLUME 10.5 fl (9.6-12.3); MONO # 0.6 10*3/uL (0.1-1.0); MONO % 10.5 % (3.0-9.0); NEUT # 3.1 10*3/uL (2.3-7.9); PLATELET COUNT AUTOMATED 198 10*3/uL (130-400); RED BLOOD COUNT 2.96 10*6/uL (4.10-5.10); RED CELL DISTRI WIDTH 15.1 % (0-14.5); WHITE BLOOD COUNT 6.1 10*3/uL (4.8-10.8)
[2019-12-29 06:33] LABS: CREATININE 1.42 mg/dL (0.55-1.02); POTASSIUM 3.2 mmol/L (3.5-5.1)
[2019-12-29 07:38] LABS: INTERNATIONAL NORM RATIO 1.3 (2.0-3.5)
[2019-12-29 08:00] VITALS: BP 107/55; BP 124/60
[2019-12-29 12:00] VITALS: BP 115/62
[2019-12-29 14:30] VITALS: BP 112/59
[2019-12-29 16:00] VITALS: BP 95/49
[2019-12-29 20:00] VITALS: BP 121/63
[2019-12-30] VITALS: BP 101/38
[2019-12-30 00:02] VITALS: BP 104/48
[2019-12-30 06:26] LABS: CREATININE 1.27 mg/dL (0.55-1.02); POTASSIUM 3.2 mmol/L (3.5-5.1)
[2019-12-30 06:36] LABS: BASO # 0.1 10*3/uL (0.0-0.1); EOS # 0.2 10*3/uL (0.0-0.4); HEMATOCRIT 27.2 % (37.0-47.0); HEMOGLOBIN 8.5 g/dl (12.0-16.0); LYMPH # 2.3 10*3/uL (1.3-4.4); LYMPH % 38.1 % (27.0-41.0); MEAN CELL VOLUME 88.9 fl (81.0-99.0); MEAN CORPUSCULAR HGB 27.8 pg (27.0-31.0); MEAN CORPUSCULAR HGB CONC 31.3 g/dl (33.0-37.0); MEAN PLATELET VOLUME 10.8 fl (9.6-12.3); MONO # 0.6 10*3/uL (0.1-1.0); MONO % 9.4 % (3.0-9.0); NEUT % 48.3 % (47.0-73.0); PLATELET COUNT AUTOMATED 222 10*3/uL (130-400); RED BLOOD COUNT 3.06 10*6/uL (4.10-5.10); RED CELL DISTRI WIDTH 15.1 % (0-14.5); WHITE BLOOD COUNT 6.1 10*3/uL (4.8-10.8)
[2019-12-30 07:59] VITALS: BP 132/68
[2019-12-30] MEDS ORDERED: METOPROLOL SUCC25 M2 PO (09:25)
[2019-12-30] MEDS ORDERED: KLOR-CON M2020 ME1 PO (09:25)
[2019-12-30] MEDS ORDERED: BUMETANIDE1 MG PO (09:25)
[2019-12-30] MEDS ORDERED: XARE15TA PO (09:25)
[2019-12-30 12:00] VITALS: BP 114/56
== END 2019-12-30 12:53 | disposition home health service (06) | DRG 291 ==
LOC: ED 16:31 → 4E 18:10 → EDHOLD 18:10 → 4E 18:31
PROVIDERS: Emergency Medicine; Family Medicine; Hospitalist; Student in an Organized Health Care Education/Training Program; ADMIT Internal Medicine
DX: I13.0 Hypertensive heart and chronic kidney disease with heart failure and stage 1 through stage 4 chronic kidney disease, or unspecified chronic kidney disease (principal); I50.33 Acute on chronic diastolic (congestive) heart failure; E43 Unspecified severe protein-calorie malnutrition; R65.10 Systemic inflammatory response syndrome (SIRS) of non-infectious origin without acute organ dysfunction; C90.00 Multiple myeloma not having achieved remission; D68.9 Coagulation defect, unspecified; I48.0 Paroxysmal atrial fibrillation; E83.51 Hypocalcemia; K21.9 Gastro-esophageal reflux disease without esophagitis; R26.81 Unsteadiness on feet; E11.22 Type 2 diabetes mellitus with diabetic chronic kidney disease; N18.3 Chronic kidney disease, stage 3 (moderate); D64.9 Anemia, unspecified; G31.84 Mild cognitive impairment of uncertain or unknown etiology; L89.892 Pressure ulcer of other site, stage 2; E78.00 Pure hypercholesterolemia, unspecified; E11.51 Type 2 diabetes mellitus with diabetic peripheral angiopathy without gangrene; E53.8 Deficiency of other specified B group vitamins; Z79.4 Long term (current) use of insulin; Z79.01 Long term (current) use of anticoagulants; Z88.0 Allergy status to penicillin; Z88.2 Allergy status to sulfonamides; Z88.8 Allergy status to other drugs, medicaments and biological substances; Z79.899 Other long term (current) drug therapy; Z90.710 Acquired absence of both cervix and uterus; Z98.41 Cataract extraction status, right eye; Z98.42 Cataract extraction status, left eye; Z80.9 Family history of malignant neoplasm, unspecified; Z82.49 Family history of ischemic heart disease and other diseases of the circulatory system; Z84.1 Family history of disorders of kidney and ureter; Z68.29 Body mass index [BMI] 29.0-29.9, adult

== ENCOUNTER → 2020-03-09 | Outpatient (CLI) | payer MEDICARE ==
[~2020-03-09] MED LIST changes: +ATIVAN0.5 MG PO; +BUMETANIDE1 MG PO; +BUMETANIDE2 MG PO; +DRONABINOL2.5 MG PO; +LAC-HYDRIN FIV226 GM T; +LOPRESSOR50 M1 PO; +METOPROLOL SUCC25 M2 PO; +POTASSIUM CHLO20 ME3 PO; +PULMICORT RESP0.5 MG INH; +WARFARIN SOD5 MG PO; +XARE15TA PO; +XOPENEX0.31 MG/3 NEB; +ZOFRAN4 MG PO
== END | disposition home or self-care (01) ==
LOC: RESCLI 01:21
DX: I13.0 Hypertensive heart and chronic kidney disease with heart failure and stage 1 through stage 4 chronic kidney disease, or unspecified chronic kidney disease (principal); E11.22 Type 2 diabetes mellitus with diabetic chronic kidney disease; I50.32 Chronic diastolic (congestive) heart failure; N18.3 Chronic kidney disease, stage 3 (moderate); I48.91 Unspecified atrial fibrillation; F32.9 Major depressive disorder, single episode, unspecified; R11.0 Nausea; F03.91 Unspecified dementia, unspecified severity, with behavioral disturbance; C90.00 Multiple myeloma not having achieved remission; D64.9 Anemia, unspecified; K21.9 Gastro-esophageal reflux disease without esophagitis; E78.5 Hyperlipidemia, unspecified; J30.2 Other seasonal allergic rhinitis; J44.9 Chronic obstructive pulmonary disease, unspecified; E53.8 Deficiency of other specified B group vitamins; E55.9 Vitamin D deficiency, unspecified; Z90.49 Acquired absence of other specified parts of digestive tract; Z79.899 Other long term (current) drug therapy; Z98.890 Other specified postprocedural states; Z79.84 Long term (current) use of oral hypoglycemic drugs

== ENCOUNTER → 2020-03-16 | Outpatient (CLI) | payer MEDICARE | END | disposition home or self-care (01) | LOC: RESCLI 00:57 | DX: I13.0 Hypertensive heart and chronic kidney disease with heart failure and stage 1 through stage 4 chronic kidney disease, or unspecified chronic kidney disease (principal); I50.32 Chronic diastolic (congestive) heart failure; N18.3 Chronic kidney disease, stage 3 (moderate); E11.22 Type 2 diabetes mellitus with diabetic chronic kidney disease; I48.91 Unspecified atrial fibrillation; E11.9 Type 2 diabetes mellitus without complications; F32.9 Major depressive disorder, single episode, unspecified; F03.91 Unspecified dementia, unspecified severity, with behavioral disturbance; K21.9 Gastro-esophageal reflux disease without esophagitis; E78.5 Hyperlipidemia, unspecified; J30.2 Other seasonal allergic rhinitis; J44.9 Chronic obstructive pulmonary disease, unspecified; E53.8 Deficiency of other specified B group vitamins; E55.9 Vitamin D deficiency, unspecified; F42.4 Excoriation (skin-picking) disorder; Z79.899 Other long term (current) drug therapy; Z98.890 Other specified postprocedural states; Z90.710 Acquired absence of both cervix and uterus; Z90.49 Acquired absence of other specified parts of digestive tract ==

== ENCOUNTER → 2020-03-22 | Outpatient (CLI) | payer MEDICARE ==
[2020-03-22 11:54] LABS: BASO # 0.1 10*3/uL (0.0-0.1); BASO % 1.2 % (0.0-1.0); EOS # 0.1 10*3/uL (0.0-0.4); EOS % 1.6 % (1.0-4.0); HEMATOCRIT 26.2 % (37.0-47.0); LYMPH # 1.4 10*3/uL (1.3-4.4); LYMPH % 26.7 % (27.0-41.0); MEAN CELL VOLUME 85.1 fl (81.0-99.0); MEAN CORPUSCULAR HGB CONC 30.5 g/dl (33.0-37.0); MEAN PLATELET VOLUME 11.3 fl (9.6-12.3); MONO # 0.6 10*3/uL (0.1-1.0); MONO % 10.8 % (3.0-9.0); NEUT % 59.3 % (47.0-73.0); PLATELET COUNT AUTOMATED 206 10*3/uL (130-400); RED BLOOD COUNT 3.08 10*6/uL (4.10-5.10); RED CELL DISTRI WIDTH 16.3 % (0-14.5); WHITE BLOOD COUNT 5.1 10*3/uL (4.8-10.8)
[2020-03-22 12:35] LABS: ALBUMIN 2.3 gm/dl (3.1-4.5)
[2020-03-22 12:40] LABS: CREATININE 1.77 mg/dL (0.55-1.02); TOTAL PROTEIN 7.1 gm/dL (6.4-8.2)
== END | disposition home or self-care (01) ==
LOC: RESCLI 01:04
PROVIDERS: Internal Medicine
DX: I13.0 Hypertensive heart and chronic kidney disease with heart failure and stage 1 through stage 4 chronic kidney disease, or unspecified chronic kidney disease (principal); I50.32 Chronic diastolic (congestive) heart failure; E11.22 Type 2 diabetes mellitus with diabetic chronic kidney disease; N18.9 Chronic kidney disease, unspecified; I48.91 Unspecified atrial fibrillation; F32.9 Major depressive disorder, single episode, unspecified; F03.91 Unspecified dementia, unspecified severity, with behavioral disturbance; K21.9 Gastro-esophageal reflux disease without esophagitis; J30.2 Other seasonal allergic rhinitis; J44.9 Chronic obstructive pulmonary disease, unspecified; E53.8 Deficiency of other specified B group vitamins; E55.9 Vitamin D deficiency, unspecified; F42.4 Excoriation (skin-picking) disorder; R25.2 Cramp and spasm; Z12.39 Encounter for other screening for malignant neoplasm of breast; Z11.59 Encounter for screening for other viral diseases; Z79.899 Other long term (current) drug therapy; Z90.710 Acquired absence of both cervix and uterus; Z90.49 Acquired absence of other specified parts of digestive tract

== ENCOUNTER → 2020-04-10 | Outpatient (CLI) | payer MEDICARE ==
[2020-04-10 15:41] LABS: CREATININE 1.8 mg/dL (0.55-1.02); POTASSIUM 2.9 mmol/L (3.5-5.1)
== END | disposition home or self-care (01) ==
LOC: LAB 14:52
PROVIDERS: Family Medicine
DX: I11.0 Hypertensive heart disease with heart failure (principal); I50.32 Chronic diastolic (congestive) heart failure; E78.5 Hyperlipidemia, unspecified; E83.52 Hypercalcemia

== ENCOUNTER → 2020-04-17 | Outpatient (CLI) | payer MEDICARE | END | disposition home or self-care (01) | LOC: MAMMO 03-30 14:30 | DX: Z12.31 Encounter for screening mammogram for malignant neoplasm of breast (principal) ==

== ENCOUNTER → 2020-07-04 | Outpatient (CLI) | payer MEDICARE | END | disposition home or self-care (01) | LOC: RESCLI 00:47 | PROVIDERS: ATTEND Internal Medicine | DX: R11.0 Nausea (principal); F32.9 Major depressive disorder, single episode, unspecified; F03.91 Unspecified dementia, unspecified severity, with behavioral disturbance; K21.9 Gastro-esophageal reflux disease without esophagitis; J30.2 Other seasonal allergic rhinitis; J44.9 Chronic obstructive pulmonary disease, unspecified; I48.91 Unspecified atrial fibrillation; G89.29 Other chronic pain; I50.32 Chronic diastolic (congestive) heart failure; E11.9 Type 2 diabetes mellitus without complications; H60.502 Unspecified acute noninfective otitis externa, left ear; J01.00 Acute maxillary sinusitis, unspecified; Z79.899 Other long term (current) drug therapy; Z98.890 Other specified postprocedural states; Z88.0 Allergy status to penicillin; Z88.8 Allergy status to other drugs, medicaments and biological substances ==

== ENCOUNTER → 2020-08-01 | Outpatient (CLI) | payer MEDICARE | END | disposition home or self-care (01) | LOC: RESCLI 07-31 16:02 | PROVIDERS: ATTEND Internal Medicine Nephrology | DX: Z23 Encounter for immunization (principal) ==

== ENCOUNTER 2020-08-16 16:01 | Emergency (ER) | payer MEDICARE ==
[~2020-08-16] VITALS: Wt 53.1 kg
== END 2020-08-16 20:29 | disposition home or self-care (01) ==
LOC: ED 16:01
DX: E86.0 Dehydration (principal); R42 Dizziness and giddiness; E87.6 Hypokalemia; I13.0 Hypertensive heart and chronic kidney disease with heart failure and stage 1 through stage 4 chronic kidney disease, or unspecified chronic kidney disease; E11.22 Type 2 diabetes mellitus with diabetic chronic kidney disease; N18.4 Chronic kidney disease, stage 4 (severe); E78.00 Pure hypercholesterolemia, unspecified; I48.91 Unspecified atrial fibrillation; J44.9 Chronic obstructive pulmonary disease, unspecified; Z88.0 Allergy status to penicillin; Z88.2 Allergy status to sulfonamides; Z79.899 Other long term (current) drug therapy

== ENCOUNTER → 2020-08-16 | Outpatient (CLI) | payer MEDICARE ==
[2020-08-16 16:06] LABS: BASO # 0.1 10*3/uL (0.0-0.1); BASO % 1.5 % (0.0-1.0); EOS # 1.1 10*3/uL (0.0-0.4); EOS % 12.8 % (1.0-4.0); HEMATOCRIT 36.5 % (37.0-47.0); LYMPH # 2.8 10*3/uL (1.3-4.4); LYMPH % 32.1 % (27.0-41.0); MEAN CELL VOLUME 85.7 fl (81.0-99.0); MEAN CORPUSCULAR HGB 27.7 pg (27.0-31.0); MEAN CORPUSCULAR HGB CONC 32.3 g/dl (33.0-37.0); MONO # 0.9 10*3/uL (0.1-1.0); MONO % 9.9 % (3.0-9.0); NEUT # 3.8 10*3/uL (2.3-7.9); NEUT % 43.5 % (47.0-73.0); PLATELET COUNT AUTOMATED 400 10*3/uL (130-400); RED BLOOD COUNT 4.26 10*6/uL (4.10-5.10); RED CELL DISTRI WIDTH 13.9 % (0-14.5); WHITE BLOOD COUNT 8.7 10*3/uL (4.8-10.8)
[2020-08-16 16:34] LABS: ALBUMIN 2.7 gm/dl (3.1-4.5); CREATININE 2.25 mg/dL (0.55-1.02); POTASSIUM 3.3 mmol/L (3.5-5.1); TOTAL PROTEIN 8.3 gm/dL (6.4-8.2)
[2020-08-16 16:52] LABS: BILIRUBIN Negative (Negative); BLOOD Negative (Negative); CLARITY Clear (Clear); COLOR Yellow (Yellow); GLUCOSE Negative (Negative); KETONE Negative (Negative); LEUKO ESTERASE Negative (Negative); NITRITE Negative (Negative); PH 6.5 (4.5-8.0); UROBILINOGEN 0.2 E.U./dl (0.0-1.0)
[2020-08-16 17:03] LABS: EPITHELIAL CELLS 0-2; WBC 0-2 wbc/hpf (0-5)
== END | disposition home or self-care (01) ==
LOC: LAB 14:28
PROVIDERS: Internal Medicine; ATTEND Internal Medicine Nephrology
DX: E83.42 Hypomagnesemia (principal); E87.6 Hypokalemia; N18.30 Chronic kidney disease, stage 3 unspecified

== ENCOUNTER → 2020-08-24 | Outpatient (CLI) | payer MEDICARE ==
[2020-08-24 12:52] LABS: BASO # 0.1 10*3/uL (0.0-0.1); BASO % 1.3 % (0.0-1.0); EOS # 0.4 10*3/uL (0.0-0.4); EOS % 7.7 % (1.0-4.0); LYMPH # 1.2 10*3/uL (1.3-4.4); LYMPH % 24.9 % (27.0-41.0); MEAN CELL VOLUME 89.7 fl (81.0-99.0); MEAN CORPUSCULAR HGB 28.5 pg (27.0-31.0); MEAN CORPUSCULAR HGB CONC 31.8 g/dl (33.0-37.0); MEAN PLATELET VOLUME 10.4 fl (9.6-12.3); MONO # 0.5 10*3/uL (0.1-1.0); MONO % 9.6 % (3.0-9.0); NEUT # 2.7 10*3/uL (2.3-7.9); NEUT % 56.3 % (47.0-73.0); PLATELET COUNT AUTOMATED 215 10*3/uL (130-400); RED BLOOD COUNT 3.12 10*6/uL (4.10-5.10); WHITE BLOOD COUNT 4.8 10*3/uL (4.8-10.8)
[2020-08-24 13:07] LABS: ALBUMIN 2.1 gm/dl (3.1-4.5); CREATININE 1.44 mg/dL (0.55-1.02); TOTAL PROTEIN 6.4 gm/dL (6.4-8.2)
== END | disposition home or self-care (01) ==
LOC: RESCLI 03:18
PROVIDERS: Student in an Organized Health Care Education/Training Program; ATTEND Internal Medicine Nephrology
DX: I13.0 Hypertensive heart and chronic kidney disease with heart failure and stage 1 through stage 4 chronic kidney disease, or unspecified chronic kidney disease (principal); I50.32 Chronic diastolic (congestive) heart failure; N18.30 Chronic kidney disease, stage 3 unspecified; G89.29 Other chronic pain; K21.9 Gastro-esophageal reflux disease without esophagitis; J44.9 Chronic obstructive pulmonary disease, unspecified; I48.91 Unspecified atrial fibrillation; E78.5 Hyperlipidemia, unspecified; F03.91 Unspecified dementia, unspecified severity, with behavioral disturbance; E11.22 Type 2 diabetes mellitus with diabetic chronic kidney disease; F32.9 Major depressive disorder, single episode, unspecified; C90.00 Multiple myeloma not having achieved remission; J30.2 Other seasonal allergic rhinitis; E55.9 Vitamin D deficiency, unspecified; F41.9 Anxiety disorder, unspecified; R42 Dizziness and giddiness; Z79.899 Other long term (current) drug therapy; Z90.49 Acquired absence of other specified parts of digestive tract; Z98.890 Other specified postprocedural states; Z88.0 Allergy status to penicillin; Z88.8 Allergy status to other drugs, medicaments and biological substances

== ENCOUNTER → 2020-08-31 | Outpatient (CLI) | payer MEDICARE | END | disposition home or self-care (01) | LOC: US 13:30 | PROVIDERS: ATTEND Internal Medicine | DX: I48.91 Unspecified atrial fibrillation (principal); R42 Dizziness and giddiness ==

== ENCOUNTER → 2020-09-06 | Outpatient (CLI) | payer MEDICARE | LOC: RESCLI 00:22 | PROVIDERS: ATTEND Emergency Medicine | DX: I13.0 Hypertensive heart and chronic kidney disease with heart failure and stage 1 through stage 4 chronic kidney disease, or unspecified chronic kidney disease (principal); E11.22 Type 2 diabetes mellitus with diabetic chronic kidney disease; N18.30 Chronic kidney disease, stage 3 unspecified; I50.32 Chronic diastolic (congestive) heart failure; I48.91 Unspecified atrial fibrillation; F32.9 Major depressive disorder, single episode, unspecified; F41.9 Anxiety disorder, unspecified; E11.9 Type 2 diabetes mellitus without complications; E55.9 Vitamin D deficiency, unspecified; K21.9 Gastro-esophageal reflux disease without esophagitis; D50.9 Iron deficiency anemia, unspecified; E04.1 Nontoxic single thyroid nodule; J30.2 Other seasonal allergic rhinitis; J44.9 Chronic obstructive pulmonary disease, unspecified; F03.91 Unspecified dementia, unspecified severity, with behavioral disturbance ==

== ENCOUNTER 2020-09-13 13:45 | Emergency (ER) | payer MEDICARE ==
[~2020-09-13] VITALS: Ht 16 cm; Wt 53.1 kg
== END 2020-09-13 16:20 | disposition left against medical advice (07) ==
LOC: ED 13:45
DX: E86.0 Dehydration (principal); Z53.21 Procedure and treatment not carried out due to patient leaving prior to being seen by health care provider

== ENCOUNTER → 2020-09-13 | Outpatient (CLI) | payer MEDICARE | END | disposition home or self-care (01) | LOC: US 12:35 | PROVIDERS: ATTEND Internal Medicine Nephrology | DX: E04.1 Nontoxic single thyroid nodule (principal) ==

== ENCOUNTER → 2020-09-18 | Outpatient (CLI) | payer MEDICARE | END | disposition home or self-care (01) | LOC: RESCLI 00:20 | PROVIDERS: ATTEND Internal Medicine Nephrology | DX: D50.9 Iron deficiency anemia, unspecified (principal); N18.30 Chronic kidney disease, stage 3 unspecified; K21.9 Gastro-esophageal reflux disease without esophagitis; E04.1 Nontoxic single thyroid nodule; Z79.84 Long term (current) use of oral hypoglycemic drugs; Z79.899 Other long term (current) drug therapy; Z90.710 Acquired absence of both cervix and uterus; Z90.49 Acquired absence of other specified parts of digestive tract ==

== ENCOUNTER 2020-09-20 16:06 | Emergency (ER) | payer MEDICARE ==
[~2020-09-20] VITALS: Ht 162.5 cm; Wt 61.7 kg
[2020-09-20 19:59] LABS: HEMATOCRIT 23.1 % (37.0-47.0); MEAN CELL VOLUME 93.9 fl (81.0-99.0); MEAN CORPUSCULAR HGB CONC 29.9 g/dl (33.0-37.0); MEAN PLATELET VOLUME 10.7 fl (9.6-12.3); PLATELET COUNT AUTOMATED 219 10*3/uL (130-400); RED BLOOD COUNT 2.46 10*6/uL (4.10-5.10); RED CELL DISTRI WIDTH 15.6 % (0-14.5); WHITE BLOOD COUNT 4.5 10*3/uL (4.8-10.8)
[2020-09-20 20:25] LABS: BASOPHILS 3 % (0-1); PLATELET SUFFICIENCY NORMAL (NORMAL); POLYCHROMASIA SLIGHT; TOTAL CELLS COUNTED 100 #CELLS
[2020-09-20 20:31] LABS: ALBUMIN 2.1 gm/dl (3.1-4.5); CREATININE 1.46 mg/dL (0.55-1.02); POTASSIUM 2.9 mmol/L (3.5-5.1)
[2020-09-20 22:24] VITALS: BP 95/40
[2020-09-20 22:39] VITALS: BP 111/40
[2020-09-20 22:54] VITALS: BP 112/44
[2020-09-20 23:09] VITALS: BP 104/40
[2020-09-20 23:39] VITALS: BP 109/44
[2020-09-21 00:39] VITALS: BP 110/43
[2020-09-21 00:55] VITALS: BP 114/49
[2020-09-21 01:12] LABS: HEMATOCRIT 25.1 % (37.0-47.0)
== END 2020-09-21 02:12 | disposition home or self-care (01) ==
LOC: ED 16:06
PROVIDERS: Nurse Practitioner Family
DX: D64.9 Anemia, unspecified (principal); E87.6 Hypokalemia

== ENCOUNTER → 2020-09-20 | Outpatient (CLI) | payer MEDICARE ==
[2020-09-20 13:26] LABS: BASO # 0.1 10*3/uL (0.0-0.1); BASO % 1.1 % (0.0-1.0); EOS # 0.2 10*3/uL (0.0-0.4); HEMATOCRIT 23.4 % (37.0-47.0); LYMPH # 1.2 10*3/uL (1.3-4.4); LYMPH % 24.8 % (27.0-41.0); MEAN CELL VOLUME 93.6 fl (81.0-99.0); MEAN CORPUSCULAR HGB 28.4 pg (27.0-31.0); MEAN CORPUSCULAR HGB CONC 30.3 g/dl (33.0-37.0); MEAN PLATELET VOLUME 10.7 fl (9.6-12.3); MONO # 0.5 10*3/uL (0.1-1.0); MONO % 11.3 % (3.0-9.0); NEUT # 2.8 10*3/uL (2.3-7.9); NEUT % 58.6 % (47.0-73.0); PLATELET COUNT AUTOMATED 233 10*3/uL (130-400); RED CELL DISTRI WIDTH 15.7 % (0-14.5); WHITE BLOOD COUNT 4.8 10*3/uL (4.8-10.8)
[2020-09-20 13:40] LABS: ALBUMIN 2.2 gm/dl (3.1-4.5); CREATININE 1.41 mg/dL (0.55-1.02); POTASSIUM 3.8 mmol/L (3.5-5.1); TOTAL PROTEIN 6.2 gm/dL (6.4-8.2)
[2020-09-20 13:42] LABS: FREE T4 1.26 ng/dl (0.76-1.46)
[2020-09-20 13:46] LABS: THYROID STIM HORMONE (HS) 1.69 uIU/ml (0.358-4.75)
== END | disposition home or self-care (01) ==
LOC: LAB 12:59
PROVIDERS: Internal Medicine; ATTEND Internal Medicine Nephrology
DX: E04.1 Nontoxic single thyroid nodule (principal); D50.9 Iron deficiency anemia, unspecified; N18.30 Chronic kidney disease, stage 3 unspecified

== ENCOUNTER → 2020-10-19 | Outpatient (CLI) | payer MEDICARE | END | disposition home or self-care (01) | LOC: RESCLI 01:46 | PROVIDERS: ATTEND Internal Medicine Nephrology | DX: I13.0 Hypertensive heart and chronic kidney disease with heart failure and stage 1 through stage 4 chronic kidney disease, or unspecified chronic kidney disease (principal); E11.22 Type 2 diabetes mellitus with diabetic chronic kidney disease; N18.30 Chronic kidney disease, stage 3 unspecified; I50.32 Chronic diastolic (congestive) heart failure; G89.29 Other chronic pain; I48.91 Unspecified atrial fibrillation; E53.8 Deficiency of other specified B group vitamins; J44.9 Chronic obstructive pulmonary disease, unspecified; F03.91 Unspecified dementia, unspecified severity, with behavioral disturbance; J30.2 Other seasonal allergic rhinitis; E55.9 Vitamin D deficiency, unspecified; D50.9 Iron deficiency anemia, unspecified; F41.9 Anxiety disorder, unspecified; K21.9 Gastro-esophageal reflux disease without esophagitis; F32.9 Major depressive disorder, single episode, unspecified; Z79.84 Long term (current) use of oral hypoglycemic drugs; Z79.899 Other long term (current) drug therapy; Z88.0 Allergy status to penicillin; Z88.2 Allergy status to sulfonamides; Z88.1 Allergy status to other antibiotic agents ==

== ENCOUNTER → 2021-01-03 | Outpatient (CLI) | payer MEDICARE | END | disposition home or self-care (01) | LOC: CARD 00:03 | PROVIDERS: ATTEND Internal Medicine | DX: I48.91 Unspecified atrial fibrillation (principal); R53.81 Other malaise ==

== ENCOUNTER → 2021-02-02 | Outpatient (CLI) | payer MEDICARE | END | disposition home or self-care (01) | LOC: RESCLI 00:32 | PROVIDERS: ATTEND Internal Medicine | DX: G89.29 Other chronic pain (principal); I48.0 Paroxysmal atrial fibrillation; E53.8 Deficiency of other specified B group vitamins; E11.9 Type 2 diabetes mellitus without complications; J44.9 Chronic obstructive pulmonary disease, unspecified; E55.9 Vitamin D deficiency, unspecified; J30.2 Other seasonal allergic rhinitis; K21.9 Gastro-esophageal reflux disease without esophagitis; F32.9 Major depressive disorder, single episode, unspecified; I13.0 Hypertensive heart and chronic kidney disease with heart failure and stage 1 through stage 4 chronic kidney disease, or unspecified chronic kidney disease; I50.32 Chronic diastolic (congestive) heart failure; N18.30 Chronic kidney disease, stage 3 unspecified; F03.91 Unspecified dementia, unspecified severity, with behavioral disturbance; K25.9 Gastric ulcer, unspecified as acute or chronic, without hemorrhage or perforation; R10.13 Epigastric pain; R74.8 Abnormal levels of other serum enzymes; E04.1 Nontoxic single thyroid nodule; F42.4 Excoriation (skin-picking) disorder; Z79.899 Other long term (current) drug therapy; Z88.0 Allergy status to penicillin; Z88.8 Allergy status to other drugs, medicaments and biological substances; Z90.49 Acquired absence of other specified parts of digestive tract; Z90.710 Acquired absence of both cervix and uterus; Z98.890 Other specified postprocedural states ==

== ENCOUNTER → 2021-02-07 | Outpatient (CLI) | payer MEDICARE | END | disposition home or self-care (01) | LOC: CT 10:00 | PROVIDERS: ATTEND Internal Medicine | DX: R16.1 Splenomegaly, not elsewhere classified (principal); K76.9 Liver disease, unspecified; K86.89 Other specified diseases of pancreas; Z90.49 Acquired absence of other specified parts of digestive tract; Z90.710 Acquired absence of both cervix and uterus; Z96.642 Presence of left artificial hip joint ==

== ENCOUNTER → 2021-02-16 | Outpatient (CLI) | payer MEDICARE | END | disposition home or self-care (01) | LOC: US 01:21 | PROVIDERS: ATTEND Internal Medicine | DX: K74.69 Other cirrhosis of liver (principal); R74.8 Abnormal levels of other serum enzymes; R10.13 Epigastric pain; Z90.49 Acquired absence of other specified parts of digestive tract ==

== ENCOUNTER → 2021-03-13 | Outpatient (CLI) | payer MEDICARE | END | disposition home or self-care (01) | LOC: RESCLI 00:37 | PROVIDERS: ATTEND Student in an Organized Health Care Education/Training Program | DX: I13.0 Hypertensive heart and chronic kidney disease with heart failure and stage 1 through stage 4 chronic kidney disease, or unspecified chronic kidney disease (principal); E11.22 Type 2 diabetes mellitus with diabetic chronic kidney disease; N18.30 Chronic kidney disease, stage 3 unspecified; E55.9 Vitamin D deficiency, unspecified; F32.9 Major depressive disorder, single episode, unspecified; J30.2 Other seasonal allergic rhinitis; F42.4 Excoriation (skin-picking) disorder; K21.9 Gastro-esophageal reflux disease without esophagitis; I50.32 Chronic diastolic (congestive) heart failure; C90.00 Multiple myeloma not having achieved remission; F03.90 Unspecified dementia, unspecified severity, without behavioral disturbance, psychotic disturbance, mood disturbance, and anxiety; I48.0 Paroxysmal atrial fibrillation; K76.89 Other specified diseases of liver; K76.9 Liver disease, unspecified; Z79.899 Other long term (current) drug therapy; Z88.0 Allergy status to penicillin; Z88.8 Allergy status to other drugs, medicaments and biological substances ==

== ENCOUNTER → 2021-03-23 | Outpatient (CLI) | payer MEDICARE | END | disposition home or self-care (01) | LOC: MRI 10:57 | PROVIDERS: ATTEND Internal Medicine | DX: K74.60 Unspecified cirrhosis of liver (principal); K86.2 Cyst of pancreas; R16.1 Splenomegaly, not elsewhere classified; I87.8 Other specified disorders of veins; J90 Pleural effusion, not elsewhere classified; Z90.49 Acquired absence of other specified parts of digestive tract ==

== ENCOUNTER 2021-04-19 13:54 | Inpatient (IN) | payer MEDICARE ==
[2021-04-19] VITALS (7 sets, daily range): BP systolic 100–132; BP diastolic 36–46
[~2021-04-19] VITALS: Ht 160 cm; Wt 69.4 kg
[2021-04-19 14:35] LABS: BASO # 0.1 10*3/uL (0.0-0.1); EOS # 0.2 10*3/uL (0.0-0.4); EOS % 2.2 % (1.0-4.0); HEMATOCRIT 31.1 % (37.0-47.0); LYMPH # 1.2 10*3/uL (1.3-4.4); LYMPH % 18.4 % (27.0-41.0); MEAN CELL VOLUME 86.4 fl (81.0-99.0); MEAN CORPUSCULAR HGB 28.3 pg (27.0-31.0); MEAN CORPUSCULAR HGB CONC 32.8 g/dl (33.0-37.0); MEAN PLATELET VOLUME 10.6 fl (9.6-12.3); MONO # 0.6 10*3/uL (0.1-1.0); MONO % 9.6 % (3.0-9.0); NEUT # 4.6 10*3/uL (2.3-7.9); NEUT % 68.5 % (47.0-73.0); PLATELET COUNT AUTOMATED 242 10*3/uL (130-400); RED CELL DISTRI WIDTH 13.5 % (0-14.5); WHITE BLOOD COUNT 6.7 10*3/uL (4.8-10.8)
[2021-04-19 14:52] LABS: ALBUMIN 2.2 gm/dl (3.1-4.5); ALKALINE PHOSPHATASE 154 U/L (45-117); BUN 33 mg/dl (7-24); CHLORIDE 96 mmol/L (98-107); CREATININE 2.42 mg/dL (0.55-1.02); POTASSIUM 2.9 mmol/L (3.5-5.1); SGOT/AST 46 IU/L (3-35); SGPT/ALT 24 U/L (12-78); SODIUM 131 mmol/L (136-145); TOTAL PROTEIN 6.9 gm/dL (6.4-8.2)
[2021-04-19 15:06] LABS: TROPONIN I < 0.015 ng/ml (<0.045)
[2021-04-19 15:16] LABS: BILIRUBIN Negative (Negative); BLOOD Negative (Negative); CLARITY Clear (Clear); COLOR Yellow (Yellow); GLUCOSE Negative (Negative); KETONE Negative (Negative); LEUKO ESTERASE Trace (Negative); NITRITE Negative (Negative)
[2021-04-19 15:26] LABS: BACTERIA 4+; EPITHELIAL CELLS 0-2
[2021-04-19] MEDS ORDERED: TOPAMAX50 MG PO (20:33)
[2021-04-20] MEDS ORDERED: VOLTAREN ARTHRI20 GM T (06:15)
[2021-04-20 06:20] LABS: ALBUMIN 1.9 gm/dl (3.1-4.5); FREE T4 1.66 ng/dl (0.76-1.46); POTASSIUM 3.6 mmol/L (3.5-5.1)
[2021-04-20 06:26] LABS: CREATININE 2.1 mg/dL (0.55-1.02); THYROID STIM HORMONE (HS) 1.29 uIU/ml (0.358-4.75); TOTAL PROTEIN 5.9 gm/dL (6.4-8.2)
[2021-04-20 06:36] LABS: BASO % 0.8 % (0.0-1.0); EOS # 0.2 10*3/uL (0.0-0.4); HEMATOCRIT 28.1 % (37.0-47.0); LYMPH # 0.9 10*3/uL (1.3-4.4); LYMPH % 18.3 % (27.0-41.0); MEAN CELL VOLUME 88.4 fl (81.0-99.0); MEAN CORPUSCULAR HGB 28.3 pg (27.0-31.0); MONO # 0.6 10*3/uL (0.1-1.0); MONO % 11.6 % (3.0-9.0); NEUT # 3.2 10*3/uL (2.3-7.9); NEUT % 65.9 % (47.0-73.0); PLATELET COUNT AUTOMATED 170 10*3/uL (130-400); RED BLOOD COUNT 3.18 10*6/uL (4.10-5.10); RED CELL DISTRI WIDTH 13.7 % (0-14.5); WHITE BLOOD COUNT 4.9 10*3/uL (4.8-10.8)
[2021-04-20 08:11] VITALS: BP 120/44
[2021-04-20 11:36] VITALS: BP 120/45
[2021-04-20 16:15] VITALS: BP 118/44
[2021-04-20 20:00] VITALS: BP 128/59
[2021-04-21] VITALS: BP 125/51
[2021-04-21 06:32] LABS: BASO % 0.6 % (0.0-1.0); EOS # 0.1 10*3/uL (0.0-0.4); EOS % 2.9 % (1.0-4.0); HEMATOCRIT 27.3 % (37.0-47.0); LYMPH # 0.8 10*3/uL (1.3-4.4); LYMPH % 17.6 % (27.0-41.0); MEAN CELL VOLUME 89.8 fl (81.0-99.0); MEAN CORPUSCULAR HGB 28.3 pg (27.0-31.0); MEAN CORPUSCULAR HGB CONC 31.5 g/dl (33.0-37.0); MEAN PLATELET VOLUME 10.9 fl (9.6-12.3); MONO # 0.5 10*3/uL (0.1-1.0); MONO % 10.5 % (3.0-9.0); NEUT # 3.2 10*3/uL (2.3-7.9); PLATELET COUNT AUTOMATED 149 10*3/uL (130-400); RED BLOOD COUNT 3.04 10*6/uL (4.10-5.10); RED CELL DISTRI WIDTH 13.9 % (0-14.5); WHITE BLOOD COUNT 4.8 10*3/uL (4.8-10.8)
[2021-04-21 06:52] LABS: ALBUMIN 1.9 gm/dl (3.1-4.5); POTASSIUM 3.6 mmol/L (3.5-5.1)
[2021-04-21 06:56] LABS: CREATININE 1.55 mg/dL (0.55-1.02); TOTAL PROTEIN 5.8 gm/dL (6.4-8.2)
[2021-04-21 08:00] VITALS: BP 120/44
[2021-04-21 12:00] VITALS: BP 120/45
[2021-04-21 16:00] VITALS: BP 121/48
[2021-04-21 20:00] VITALS: BP 117/46
[2021-04-22] VITALS: BP 118/40
[2021-04-22 06:37] LABS: BASO % 0.9 % (0.0-1.0); EOS # 0.2 10*3/uL (0.0-0.4); EOS % 3.8 % (1.0-4.0); HEMATOCRIT 27.6 % (37.0-47.0); LYMPH # 0.8 10*3/uL (1.3-4.4); LYMPH % 18.7 % (27.0-41.0); MEAN CELL VOLUME 89.3 fl (81.0-99.0); MEAN CORPUSCULAR HGB 28.8 pg (27.0-31.0); MEAN CORPUSCULAR HGB CONC 32.2 g/dl (33.0-37.0); MEAN PLATELET VOLUME 10.8 fl (9.6-12.3); MONO # 0.4 10*3/uL (0.1-1.0); MONO % 9.5 % (3.0-9.0); NEUT % 66.9 % (47.0-73.0); PLATELET COUNT AUTOMATED 151 10*3/uL (130-400); RED BLOOD COUNT 3.09 10*6/uL (4.10-5.10); RED CELL DISTRI WIDTH 13.7 % (0-14.5); WHITE BLOOD COUNT 4.4 10*3/uL (4.8-10.8)
[2021-04-22 06:54] LABS: CREATININE 1.34 mg/dL (0.55-1.02); POTASSIUM 3.6 mmol/L (3.5-5.1)
[2021-04-22 06:57] LABS: TOTAL PROTEIN 5.9 gm/dL (6.4-8.2)
[2021-04-22 08:00] VITALS: BP 125/44
[2021-04-22] MEDS ORDERED: CIPRO250 MG PO (10:43)
== END 2021-04-22 12:30 | disposition home or self-care (01) | DRG 682 ==
LOC: ED 13:54 → 5E 17:58 → EDHOLD 17:58 → 5E 18:08
PROVIDERS: Emergency Medicine; Internal Medicine; Physician Assistant; ADMIT Internal Medicine; ATTEND Internal Medicine
DX: N17.0 Acute kidney failure with tubular necrosis (principal); E43 Unspecified severe protein-calorie malnutrition; N30.00 Acute cystitis without hematuria; E87.1 Hypo-osmolality and hyponatremia; C90.00 Multiple myeloma not having achieved remission; I50.30 Unspecified diastolic (congestive) heart failure; N18.4 Chronic kidney disease, stage 4 (severe); E86.0 Dehydration; E87.6 Hypokalemia; R74.8 Abnormal levels of other serum enzymes; R74.01 Elevation of levels of liver transaminase levels; R73.9 Hyperglycemia, unspecified; E87.8 Other disorders of electrolyte and fluid balance, not elsewhere classified; F32.9 Major depressive disorder, single episode, unspecified; K21.9 Gastro-esophageal reflux disease without esophagitis; D64.9 Anemia, unspecified; I48.0 Paroxysmal atrial fibrillation; F41.9 Anxiety disorder, unspecified; G89.29 Other chronic pain; B96.20 Unspecified Escherichia coli [E. coli] as the cause of diseases classified elsewhere; F03.90 Unspecified dementia, unspecified severity, without behavioral disturbance, psychotic disturbance, mood disturbance, and anxiety; I95.9 Hypotension, unspecified; Z88.2 Allergy status to sulfonamides; Z88.1 Allergy status to other antibiotic agents; Z90.710 Acquired absence of both cervix and uterus; Z98.42 Cataract extraction status, left eye; Z98.41 Cataract extraction status, right eye; Z88.0 Allergy status to penicillin; Z82.49 Family history of ischemic heart disease and other diseases of the circulatory system; Z84.1 Family history of disorders of kidney and ureter; Z80.8 Family history of malignant neoplasm of other organs or systems; Z79.899 Other long term (current) drug therapy; Z68.27 Body mass index [BMI] 27.0-27.9, adult

== ENCOUNTER → 2021-05-07 | Outpatient (CLI) | payer MEDICARE ==
[~2021-05-07] MED LIST changes: +CIPRO250 MG PO; +TOPAMAX50 MG PO; +VOLTAREN ARTHRI20 GM T
[2021-05-07 14:53] LABS: CREATININE 1.83 mg/dL (0.55-1.02); POTASSIUM 3.5 mmol/L (3.5-5.1)
[2021-05-07 15:29] LABS: FERRITIN 63.4 ng/mL (10.0-291.0)
== END | disposition home or self-care (01) ==
LOC: RESCLI 00:29
PROVIDERS: Internal Medicine; ATTEND Internal Medicine Nephrology
DX: G89.29 Other chronic pain (principal); E55.9 Vitamin D deficiency, unspecified; J30.2 Other seasonal allergic rhinitis; K21.9 Gastro-esophageal reflux disease without esophagitis; F32.9 Major depressive disorder, single episode, unspecified; F03.90 Unspecified dementia, unspecified severity, without behavioral disturbance, psychotic disturbance, mood disturbance, and anxiety; I48.0 Paroxysmal atrial fibrillation; I50.32 Chronic diastolic (congestive) heart failure; E11.9 Type 2 diabetes mellitus without complications; F42.4 Excoriation (skin-picking) disorder; G47.62 Sleep related leg cramps; F41.9 Anxiety disorder, unspecified; K76.9 Liver disease, unspecified; Z88.0 Allergy status to penicillin; Z88.8 Allergy status to other drugs, medicaments and biological substances; Z90.49 Acquired absence of other specified parts of digestive tract; Z90.710 Acquired absence of both cervix and uterus; Z98.890 Other specified postprocedural states; Z79.899 Other long term (current) drug therapy

== ENCOUNTER 2021-06-20 14:22 | Inpatient (IN) | payer MEDICARE ==
[~2021-06-20] VITALS: Ht 157.4 cm; Wt 69.4 kg
[2021-06-20 14:47] VITALS: BP 132/48
[2021-06-20 18:11] VITALS: BP 134/48
[2021-06-20 20:04] LABS: BASO % 0.4 % (0.0-1.0); EOS # 0.1 10*3/uL (0.0-0.4); EOS % 1.2 % (1.0-4.0); HEMATOCRIT 25.7 % (37.0-47.0); LYMPH % 12.7 % (27.0-41.0); MEAN CELL VOLUME 89.2 fl (81.0-99.0); MEAN CORPUSCULAR HGB 28.1 pg (27.0-31.0); MEAN CORPUSCULAR HGB CONC 31.5 g/dl (33.0-37.0); MEAN PLATELET VOLUME 10.7 fl (9.6-12.3); MONO # 0.8 10*3/uL (0.1-1.0); MONO % 11.2 % (3.0-9.0); NEUT # 5.6 10*3/uL (2.3-7.9); NEUT % 73.8 % (47.0-73.0); PLATELET COUNT AUTOMATED 159 10*3/uL (130-400); RED BLOOD COUNT 2.88 10*6/uL (4.10-5.10); RED CELL DISTRI WIDTH 14.3 % (0-14.5); WHITE BLOOD COUNT 7.5 10*3/uL (4.8-10.8)
[2021-06-20 20:12] VITALS: BP 122/47
[2021-06-20 20:25] LABS: ALBUMIN 1.7 gm/dl (3.1-4.5); ALKALINE PHOSPHATASE 183 U/L (45-117); BUN 26 mg/dl (7-24); CHLORIDE 107 mmol/L (98-107); CREATININE 2.35 mg/dL (0.55-1.02); POTASSIUM 3.4 mmol/L (3.5-5.1); SGOT/AST 30 IU/L (3-35); SGPT/ALT 25 U/L (12-78); SODIUM 136 mmol/L (136-145); TOTAL PROTEIN 6.9 gm/dL (6.4-8.2)
[2021-06-20 20:29] LABS: TROPONIN I < 0.015 ng/ml (<0.045)
[2021-06-20 21:35] VITALS: BP 128/66
[2021-06-20 22:27] VITALS: BP 113/46
[2021-06-20 22:44] LABS: BILIRUBIN Negative (Negative); BLOOD Trace-Lysed (Negative); CLARITY Clear (Clear); COLOR Yellow (Yellow); GLUCOSE Negative (Negative); KETONE Negative (Negative); LEUKO ESTERASE 2+ (Negative); NITRITE Positive (Negative); UROBILINOGEN 0.2 E.U./dl (0.0-1.0)
[2021-06-20 23:02] LABS: BACTERIA 3+
[2021-06-20 23:31] VITALS: BP 115/39
[2021-06-21 01:26] VITALS: BP 112/40
[2021-06-21 05:45] LABS: ALBUMIN 1.5 gm/dl (3.1-4.5); CREATININE 2.04 mg/dL (0.55-1.02); POTASSIUM 3.5 mmol/L (3.5-5.1); TOTAL PROTEIN 6.3 gm/dL (6.4-8.2)
[2021-06-21 06:17] LABS: BASO % 0.8 % (0.0-1.0); EOS # 0.1 10*3/uL (0.0-0.4); EOS % 2.1 % (1.0-4.0); HEMATOCRIT 25.2 % (37.0-47.0); LYMPH # 0.7 10*3/uL (1.3-4.4); LYMPH % 15.3 % (27.0-41.0); MEAN CELL VOLUME 89.7 fl (81.0-99.0); MEAN CORPUSCULAR HGB 28.5 pg (27.0-31.0); MEAN CORPUSCULAR HGB CONC 31.7 g/dl (33.0-37.0); MEAN PLATELET VOLUME 11.3 fl (9.6-12.3); MONO # 0.6 10*3/uL (0.1-1.0); MONO % 11.4 % (3.0-9.0); NEUT # 3.4 10*3/uL (2.3-7.9); NEUT % 70.2 % (47.0-73.0); PLATELET COUNT AUTOMATED 137 10*3/uL (130-400); RED BLOOD COUNT 2.81 10*6/uL (4.10-5.10); RED CELL DISTRI WIDTH 14.2 % (0-14.5); WHITE BLOOD COUNT 4.8 10*3/uL (4.8-10.8)
[2021-06-21 06:53] LABS: VITAMIN D, 25-HYDROXY 49.3 ng/mL (30-100)
[2021-06-21 06:57] VITALS: BP 120/49
[2021-06-21] MEDS ORDERED: HYDROXYZINE HCL25 MG PO (12:15)
[2021-06-21] MEDS ORDERED: MIRTAZAPINE7.5 MG PO (12:17)
[2021-06-21] MEDS ORDERED: CYCLOBENZAPRINE10 MG PO (12:18)
[2021-06-21 21:25] VITALS: BP 122/50
[2021-06-22 06:25] LABS: ALBUMIN 1.4 gm/dl (3.1-4.5); POTASSIUM 3.7 mmol/L (3.5-5.1); TOTAL PROTEIN 6.3 gm/dL (6.4-8.2)
[2021-06-22 06:27] LABS: CREATININE 1.96 mg/dL (0.55-1.02)
[2021-06-22 06:28] LABS: BASO % 0.8 % (0.0-1.0); EOS # 0.1 10*3/uL (0.0-0.4); EOS % 3.2 % (1.0-4.0); HEMATOCRIT 24.6 % (37.0-47.0); LYMPH # 0.6 10*3/uL (1.3-4.4); LYMPH % 15.4 % (27.0-41.0); MEAN CELL VOLUME 88.5 fl (81.0-99.0); MEAN CORPUSCULAR HGB 28.4 pg (27.0-31.0); MEAN CORPUSCULAR HGB CONC 32.1 g/dl (33.0-37.0); MEAN PLATELET VOLUME 11.1 fl (9.6-12.3); MONO # 0.5 10*3/uL (0.1-1.0); MONO % 12.8 % (3.0-9.0); NEUT # 2.5 10*3/uL (2.3-7.9); NEUT % 67.3 % (47.0-73.0); PLATELET COUNT AUTOMATED 164 10*3/uL (130-400); RED BLOOD COUNT 2.78 10*6/uL (4.10-5.10); RED CELL DISTRI WIDTH 14.3 % (0-14.5); WHITE BLOOD COUNT 3.8 10*3/uL (4.8-10.8)
[2021-06-22] MEDS ORDERED: ZITHROMAX TRI-500 M1 PO (15:09)
[2021-06-22] MEDS ORDERED: CEPHALEXIN500 M1 PO (15:09)
[2021-06-22] MEDS ORDERED: CLINDAMYCIN HC300 MG PO (15:09)
[2021-06-22 16:30] VITALS: BP 130/56
[2021-06-22 20:00] VITALS: BP 144/48
[2021-06-23] VITALS: BP 106/34
[2021-06-23 06:51] LABS: BASO # 0.1 10*3/uL (0.0-0.1); BASO % 1.5 % (0.0-1.0); EOS # 0.2 10*3/uL (0.0-0.4); EOS % 4.8 % (1.0-4.0); HEMATOCRIT 25.1 % (37.0-47.0); LYMPH # 0.7 10*3/uL (1.3-4.4); LYMPH % 20.6 % (27.0-41.0); MEAN CELL VOLUME 90.6 fl (81.0-99.0); MEAN CORPUSCULAR HGB 28.2 pg (27.0-31.0); MEAN CORPUSCULAR HGB CONC 31.1 g/dl (33.0-37.0); MEAN PLATELET VOLUME 10.6 fl (9.6-12.3); MONO # 0.5 10*3/uL (0.1-1.0); NEUT % 58.5 % (47.0-73.0); PLATELET COUNT AUTOMATED 173 10*3/uL (130-400); RED BLOOD COUNT 2.77 10*6/uL (4.10-5.10); RED CELL DISTRI WIDTH 14.6 % (0-14.5); WHITE BLOOD COUNT 3.4 10*3/uL (4.8-10.8)
[2021-06-23 07:19] LABS: CREATININE 1.76 mg/dL (0.55-1.02); POTASSIUM 3.5 mmol/L (3.5-5.1)
[2021-06-23 08:00] VITALS: BP 136/48
[2021-06-26 15:07] LABS: B. HENSELAE IGG Negative titer (Neg:<1:320); B. HENSELAE IGM Negative titer (Neg:<1:100); B. QUINTANA IGG Negative titer (Neg:<1:320); B. QUINTANA IGM Negative titer (Neg:<1:100)
== END 2021-06-23 11:30 | disposition home or self-care (01) | DRG 602 ==
LOC: ED 14:22 → EDHOLD 20:53 → 4E 06-22 14:31
PROVIDERS: Hospitalist; Internal Medicine; Internal Medicine Infectious Disease; Nurse Practitioner; ADMIT Internal Medicine; ATTEND Internal Medicine
DX: L03.114 Cellulitis of left upper limb (principal); N17.0 Acute kidney failure with tubular necrosis; E43 Unspecified severe protein-calorie malnutrition; C90.00 Multiple myeloma not having achieved remission; N18.4 Chronic kidney disease, stage 4 (severe); I50.32 Chronic diastolic (congestive) heart failure; N39.0 Urinary tract infection, site not specified; E86.0 Dehydration; I48.0 Paroxysmal atrial fibrillation; R82.71 Bacteriuria; E11.65 Type 2 diabetes mellitus with hyperglycemia; E87.6 Hypokalemia; F32.9 Major depressive disorder, single episode, unspecified; K21.9 Gastro-esophageal reflux disease without esophagitis; G89.29 Other chronic pain; F41.9 Anxiety disorder, unspecified; F03.90 Unspecified dementia, unspecified severity, without behavioral disturbance, psychotic disturbance, mood disturbance, and anxiety; Z88.0 Allergy status to penicillin; Z88.2 Allergy status to sulfonamides; Z88.8 Allergy status to other drugs, medicaments and biological substances; Z79.899 Other long term (current) drug therapy; Z79.1 Long term (current) use of non-steroidal anti-inflammatories (NSAID); Z68.28 Body mass index [BMI] 28.0-28.9, adult

== ENCOUNTER → 2021-07-03 | Outpatient (CLI) | payer MEDICARE ==
[~2021-07-03] MED LIST changes: +CEPHALEXIN500 M1 PO; +CLINDAMYCIN HC300 MG PO; +HYDROXYZINE HCL25 MG PO; +MIRTAZAPINE7.5 MG PO; +ZITHROMAX TRI-500 M1 PO
== END | disposition home or self-care (01) ==
LOC: RESCLI 00:53
PROVIDERS: ATTEND Internal Medicine
DX: K21.9 Gastro-esophageal reflux disease without esophagitis (principal); I13.0 Hypertensive heart and chronic kidney disease with heart failure and stage 1 through stage 4 chronic kidney disease, or unspecified chronic kidney disease; I50.30 Unspecified diastolic (congestive) heart failure; N18.30 Chronic kidney disease, stage 3 unspecified; E11.22 Type 2 diabetes mellitus with diabetic chronic kidney disease; G89.29 Other chronic pain; F41.9 Anxiety disorder, unspecified; E55.9 Vitamin D deficiency, unspecified; J30.2 Other seasonal allergic rhinitis; F03.90 Unspecified dementia, unspecified severity, without behavioral disturbance, psychotic disturbance, mood disturbance, and anxiety; I48.0 Paroxysmal atrial fibrillation; F32.9 Major depressive disorder, single episode, unspecified; G25.81 Restless legs syndrome; L03.114 Cellulitis of left upper limb; Z88.0 Allergy status to penicillin; Z88.8 Allergy status to other drugs, medicaments and biological substances; Z79.899 Other long term (current) drug therapy

== ENCOUNTER → 2021-09-17 | Outpatient (CLI) | payer MEDICARE | END | disposition home or self-care (01) | LOC: RESCLI 01:19 | PROVIDERS: ATTEND Internal Medicine Nephrology | DX: F42.4 Excoriation (skin-picking) disorder (principal); G25.81 Restless legs syndrome; F41.9 Anxiety disorder, unspecified; I13.0 Hypertensive heart and chronic kidney disease with heart failure and stage 1 through stage 4 chronic kidney disease, or unspecified chronic kidney disease; Z12.9 Encounter for screening for malignant neoplasm, site unspecified; N18.30 Chronic kidney disease, stage 3 unspecified; D63.1 Anemia in chronic kidney disease; J30.2 Other seasonal allergic rhinitis; G89.29 Other chronic pain; F03.90 Unspecified dementia, unspecified severity, without behavioral disturbance, psychotic disturbance, mood disturbance, and anxiety; I50.32 Chronic diastolic (congestive) heart failure; I48.0 Paroxysmal atrial fibrillation; F32.9 Major depressive disorder, single episode, unspecified; K21.9 Gastro-esophageal reflux disease without esophagitis; E11.9 Type 2 diabetes mellitus without complications; D50.9 Iron deficiency anemia, unspecified; G43.909 Migraine, unspecified, not intractable, without status migrainosus; Z79.899 Other long term (current) drug therapy; Z98.890 Other specified postprocedural states; Z88.0 Allergy status to penicillin; Z88.8 Allergy status to other drugs, medicaments and biological substances ==

== ENCOUNTER 2021-10-06 15:42 | Inpatient (IN) | payer MEDICARE ==
[~2021-10-06] VITALS: Ht 162.6 cm; Wt 63.2 kg
[2021-10-06 15:46] VITALS: BP 157/71
[2021-10-06 16:09] LABS: BASO # 0.1 10*3/uL (0.0-0.1); BASO % 1.1 % (0.0-1.0); EOS # 0.1 10*3/uL (0.0-0.4); EOS % 1.8 % (1.0-4.0); HEMATOCRIT 33.4 % (37.0-47.0); LYMPH # 1.2 10*3/uL (1.3-4.4); LYMPH % 18.7 % (27.0-41.0); MEAN CELL VOLUME 87.9 fl (81.0-99.0); MEAN CORPUSCULAR HGB 28.4 pg (27.0-31.0); MEAN CORPUSCULAR HGB CONC 32.3 g/dl (33.0-37.0); MEAN PLATELET VOLUME 10.8 fl (9.6-12.3); MONO # 0.8 10*3/uL (0.1-1.0); MONO % 12.1 % (3.0-9.0); NEUT # 4.1 10*3/uL (2.3-7.9); NEUT % 65.7 % (47.0-73.0); PLATELET COUNT AUTOMATED 267 10*3/uL (130-400); RED CELL DISTRI WIDTH 14.4 % (0-14.5); WHITE BLOOD COUNT 6.2 10*3/uL (4.8-10.8)
[2021-10-06 16:24] LABS: ALBUMIN 1.9 gm/dl (3.1-4.5); CREATININE 1.99 mg/dL (0.55-1.02); POTASSIUM 4.1 mmol/L (3.5-5.1); TOTAL PROTEIN 7.2 gm/dL (6.4-8.2)
[2021-10-06 16:42] VITALS: BP 137/60
[2021-10-06 17:16] LABS: BILIRUBIN Negative (Negative); BLOOD Negative (Negative); CLARITY Cloudy (Clear); COLOR Dark Yellow (Yellow); GLUCOSE Negative (Negative); KETONE Trace (Negative); LEUKO ESTERASE 1+ (Negative); NITRITE Negative (Negative); PH 5.5 (4.5-8.0); SPECIFIC GRAVITY 1.025 (1.001-1.030)
[2021-10-06 17:22] LABS: BACTERIA 4+; RBC 0-2 rbc/hpf (0-2)
[2021-10-06 18:50] VITALS: BP 146/59
[2021-10-07] VITALS: BP 133/53
[2021-10-07 06:39] LABS: BASO # 0.1 10*3/uL (0.0-0.1); BASO % 1.5 % (0.0-1.0); EOS # 0.1 10*3/uL (0.0-0.4); EOS % 3.1 % (1.0-4.0); HEMATOCRIT 31.5 % (37.0-47.0); LYMPH # 1.2 10*3/uL (1.3-4.4); LYMPH % 26.4 % (27.0-41.0); MEAN CELL VOLUME 87.7 fl (81.0-99.0); MEAN CORPUSCULAR HGB 28.7 pg (27.0-31.0); MEAN CORPUSCULAR HGB CONC 32.7 g/dl (33.0-37.0); MEAN PLATELET VOLUME 10.8 fl (9.6-12.3); MONO # 0.5 10*3/uL (0.1-1.0); MONO % 11.8 % (3.0-9.0); NEUT # 2.6 10*3/uL (2.3-7.9); NEUT % 56.5 % (47.0-73.0); PLATELET COUNT AUTOMATED 247 10*3/uL (130-400); RED BLOOD COUNT 3.59 10*6/uL (4.10-5.10); RED CELL DISTRI WIDTH 14.3 % (0-14.5); WHITE BLOOD COUNT 4.6 10*3/uL (4.8-10.8)
[2021-10-07 07:03] LABS: ALBUMIN 1.7 gm/dl (3.1-4.5); CREATININE 1.83 mg/dL (0.55-1.02); FREE T4 1.45 ng/dl (0.76-1.46); POTASSIUM 3.9 mmol/L (3.5-5.1); TOTAL PROTEIN 6.6 gm/dL (6.4-8.2)
[2021-10-07 07:07] LABS: THYROID STIM HORMONE (HS) 0.671 uIU/ml (0.358-4.75)
[2021-10-07 08:00] VITALS: BP 146/48
[2021-10-07 08:00] LABS: VITAMIN D, 25-HYDROXY 64.9 ng/mL (30-100)
[2021-10-07 12:00] VITALS: BP 135/42
[2021-10-07 16:00] VITALS: BP 147/38
[2021-10-07 20:00] VITALS: BP 131/48
[2021-10-08] VITALS: BP 122/44
[2021-10-08 06:32] LABS: BASO % 0.9 % (0.0-1.0); EOS # 0.2 10*3/uL (0.0-0.4); EOS % 3.3 % (1.0-4.0); LYMPH # 1.2 10*3/uL (1.3-4.4); LYMPH % 26.2 % (27.0-41.0); MEAN CELL VOLUME 84.8 fl (81.0-99.0); MEAN CORPUSCULAR HGB 28.5 pg (27.0-31.0); MEAN CORPUSCULAR HGB CONC 33.6 g/dl (33.0-37.0); MEAN PLATELET VOLUME 11.4 fl (9.6-12.3); MONO # 0.5 10*3/uL (0.1-1.0); MONO % 11.5 % (3.0-9.0); NEUT # 2.6 10*3/uL (2.3-7.9); NEUT % 57.7 % (47.0-73.0); PLATELET COUNT AUTOMATED 224 10*3/uL (130-400); RED CELL DISTRI WIDTH 14.1 % (0-14.5); WHITE BLOOD COUNT 4.5 10*3/uL (4.8-10.8)
[2021-10-08 06:41] LABS: CREATININE 1.53 mg/dL (0.55-1.02); POTASSIUM 3.8 mmol/L (3.5-5.1)
[2021-10-08 08:59] VITALS: BP 147/76
[2021-10-08 12:01] VITALS: BP 133/50
[2021-10-08 15:18] VITALS: BP 118/49
[2021-10-08 20:00] VITALS: BP 131/56
[2021-10-09] VITALS: BP 147/62
[2021-10-09 07:31] LABS: BASO # 0.1 10*3/uL (0.0-0.1); BASO % 1.2 % (0.0-1.0); EOS # 0.1 10*3/uL (0.0-0.4); EOS % 3.2 % (1.0-4.0); HEMATOCRIT 29.1 % (37.0-47.0); LYMPH # 1.1 10*3/uL (1.3-4.4); LYMPH % 26.3 % (27.0-41.0); MEAN CELL VOLUME 87.4 fl (81.0-99.0); MEAN CORPUSCULAR HGB 28.2 pg (27.0-31.0); MEAN CORPUSCULAR HGB CONC 32.3 g/dl (33.0-37.0); MEAN PLATELET VOLUME 11.8 fl (9.6-12.3); MONO # 0.5 10*3/uL (0.1-1.0); MONO % 11.5 % (3.0-9.0); NEUT # 2.5 10*3/uL (2.3-7.9); NEUT % 57.3 % (47.0-73.0); PLATELET COUNT AUTOMATED 214 10*3/uL (130-400); RED BLOOD COUNT 3.33 10*6/uL (4.10-5.10); RED CELL DISTRI WIDTH 14.3 % (0-14.5); WHITE BLOOD COUNT 4.3 10*3/uL (4.8-10.8)
[2021-10-09 07:45] LABS: CREATININE 1.43 mg/dL (0.55-1.02)
[2021-10-09 08:00] VITALS: BP 122/50
[2021-10-09 12:00] VITALS: BP 136/53
[2021-10-09 16:00] VITALS: BP 121/50
[2021-10-09 20:05] VITALS: BP 129/56
[2021-10-10 00:40] VITALS: BP 129/55
[2021-10-10 06:47] LABS: CREATININE 1.48 mg/dL (0.55-1.02); POTASSIUM 4.4 mmol/L (3.5-5.1)
[2021-10-10 06:56] LABS: BASO # 0.1 10*3/uL (0.0-0.1); BASO % 1.2 % (0.0-1.0); EOS # 0.1 10*3/uL (0.0-0.4); EOS % 3.3 % (1.0-4.0); HEMATOCRIT 29.9 % (37.0-47.0); LYMPH # 1.2 10*3/uL (1.3-4.4); LYMPH % 27.3 % (27.0-41.0); MEAN CELL VOLUME 87.9 fl (81.0-99.0); MEAN CORPUSCULAR HGB 29.1 pg (27.0-31.0); MEAN CORPUSCULAR HGB CONC 33.1 g/dl (33.0-37.0); MEAN PLATELET VOLUME 11.1 fl (9.6-12.3); MONO # 0.5 10*3/uL (0.1-1.0); MONO % 12.1 % (3.0-9.0); NEUT # 2.4 10*3/uL (2.3-7.9); NEUT % 55.4 % (47.0-73.0); PLATELET COUNT AUTOMATED 238 10*3/uL (130-400); RED CELL DISTRI WIDTH 14.4 % (0-14.5); WHITE BLOOD COUNT 4.3 10*3/uL (4.8-10.8)
[2021-10-10 08:00] VITALS: BP 117/50
== END 2021-10-10 14:11 | DRG 682 ==
LOC: ED 15:42 → 5E 17:58 → EDHOLD 17:58 → 5E 18:38
PROVIDERS: Internal Medicine; Student in an Organized Health Care Education/Training Program; ADMIT Family Medicine; ATTEND Family Medicine
DX: N17.0 Acute kidney failure with tubular necrosis (principal); E43 Unspecified severe protein-calorie malnutrition; I50.32 Chronic diastolic (congestive) heart failure; N18.4 Chronic kidney disease, stage 4 (severe); E86.0 Dehydration; R82.71 Bacteriuria; I48.0 Paroxysmal atrial fibrillation; Z20.822 Contact with and (suspected) exposure to COVID-19; D64.9 Anemia, unspecified; E87.8 Other disorders of electrolyte and fluid balance, not elsewhere classified; R74.01 Elevation of levels of liver transaminase levels; R73.9 Hyperglycemia, unspecified; F32.A Depression, unspecified; K21.9 Gastro-esophageal reflux disease without esophagitis; F03.90 Unspecified dementia, unspecified severity, without behavioral disturbance, psychotic disturbance, mood disturbance, and anxiety; F41.9 Anxiety disorder, unspecified; E83.51 Hypocalcemia; W19.XXXA Unspecified fall, initial encounter; Y93.9 Activity, unspecified; Y92.89 Other specified places as the place of occurrence of the external cause; Y99.9 Unspecified external cause status; Z68.23 Body mass index [BMI] 23.0-23.9, adult; Z88.0 Allergy status to penicillin; Z88.2 Allergy status to sulfonamides; Z88.8 Allergy status to other drugs, medicaments and biological substances

== ENCOUNTER 2022-02-20 12:00 | Inpatient (IN) | payer MEDICARE ==
[~2022-02-20] VITALS: Ht 157.4 cm; Wt 58.6 kg
[~2022-02-20 12:00] MED LIST changes: +MIRTAZAPINE30 M2 PO; +VANCOMYCIN HCL125 MG PO
[2022-02-20 12:14] VITALS: BP 145/78
[2022-02-20 12:48] LABS: BASO # 0.1 10*3/uL (0.0-0.1); BASO % 0.7 % (0.0-1.0); EOS # 0.2 10*3/uL (0.0-0.4); EOS % 2.5 % (1.0-4.0); HEMATOCRIT 33.8 % (37.0-47.0); LYMPH # 0.9 10*3/uL (1.3-4.4); LYMPH % 9.6 % (27.0-41.0); MEAN CELL VOLUME 85.1 fl (81.0-99.0); MEAN CORPUSCULAR HGB 27.2 pg (27.0-31.0); MONO % 10.4 % (3.0-9.0); NEUT # 7.2 10*3/uL (2.3-7.9); NEUT % 76.2 % (47.0-73.0); PLATELET COUNT AUTOMATED 294 10*3/uL (130-400); RED BLOOD COUNT 3.97 10*6/uL (4.10-5.10); RED CELL DISTRI WIDTH 15.3 % (0-14.5); WHITE BLOOD COUNT 9.5 10*3/uL (4.8-10.8)
[2022-02-20 13:05] LABS: CREATININE 1.76 mg/dL (0.55-1.02); POTASSIUM 3.2 mmol/L (3.5-5.1)
[2022-02-20 15:20] VITALS: BP 136/42
[2022-02-20 19:09] VITALS: BP 135/47
[2022-02-20 21:30] VITALS: BP 136/54
[2022-02-20] MEDS ORDERED: HYDROCODONE-AC1 EAC1 PO (21:51)
[2022-02-20] MEDS ORDERED: Ipratropium Brom3 ML INH (21:52)
[2022-02-20] MEDS ORDERED: NOVOLIN N100 UNIT/1 SQ (21:54)
[2022-02-20] MEDS ORDERED: VISTARIL25 M2 PO (21:55)
[2022-02-20] MEDS ORDERED: XARE15TA PO (21:55)
[2022-02-21] VITALS: BP 136/54
[2022-02-21 06:02] LABS: CREATININE 1.42 mg/dL (0.55-1.02)
[2022-02-21 06:04] LABS: TOTAL PROTEIN 6.4 gm/dL (6.4-8.2)
[2022-02-21 06:06] LABS: BASO # 0.1 10*3/uL (0.0-0.1); BASO % 1.1 % (0.0-1.0); EOS # 0.3 10*3/uL (0.0-0.4); EOS % 7.3 % (1.0-4.0); HEMATOCRIT 28.5 % (37.0-47.0); LYMPH # 0.7 10*3/uL (1.3-4.4); LYMPH % 15.6 % (27.0-41.0); MEAN CELL VOLUME 84.6 fl (81.0-99.0); MEAN CORPUSCULAR HGB 27.3 pg (27.0-31.0); MEAN CORPUSCULAR HGB CONC 32.3 g/dl (33.0-37.0); MEAN PLATELET VOLUME 11.6 fl (9.6-12.3); MONO # 0.7 10*3/uL (0.1-1.0); MONO % 14.4 % (3.0-9.0); NEUT # 2.8 10*3/uL (2.3-7.9); NEUT % 61.2 % (47.0-73.0); PLATELET COUNT AUTOMATED 220 10*3/uL (130-400); RED BLOOD COUNT 3.37 10*6/uL (4.10-5.10); RED CELL DISTRI WIDTH 15.2 % (0-14.5); WHITE BLOOD COUNT 4.5 10*3/uL (4.8-10.8)
[2022-02-21 06:15] LABS: ACT PARTIAL THROMBO TIME 47.1 SECONDS (20.0-32.1); INTERNATIONAL NORM RATIO 1.7 (2.0-3.5)
[2022-02-21 08:00] VITALS: BP 137/50
[2022-02-21 12:00] VITALS: BP 125/50
[2022-02-21 20:00] VITALS: BP 119/47
[2022-02-21] MEDS ORDERED: CLINDAMYCIN HC300 MG PO (22:14)
[2022-02-21] MEDS ORDERED: CEFTRIAXONE2 G1 IV ×2 (22:14)
[2022-02-22] VITALS: BP 142/53
[2022-02-22 05:38] LABS: CREATININE 1.38 mg/dL (0.55-1.02); POTASSIUM 3.7 mmol/L (3.5-5.1)
[2022-02-22 06:18] LABS: BASO # 0.1 10*3/uL (0.0-0.1); BASO % 1.2 % (0.0-1.0); EOS # 0.5 10*3/uL (0.0-0.4); EOS % 7.9 % (1.0-4.0); HEMATOCRIT 32.1 % (37.0-47.0); LYMPH # 0.8 10*3/uL (1.3-4.4); LYMPH % 14.8 % (27.0-41.0); MEAN CELL VOLUME 87.5 fl (81.0-99.0); MEAN CORPUSCULAR HGB 28.3 pg (27.0-31.0); MEAN CORPUSCULAR HGB CONC 32.4 g/dl (33.0-37.0); MEAN PLATELET VOLUME 11.4 fl (9.6-12.3); MONO # 0.7 10*3/uL (0.1-1.0); MONO % 12.1 % (3.0-9.0); NEUT # 3.6 10*3/uL (2.3-7.9); NEUT % 63.6 % (47.0-73.0); RED BLOOD COUNT 3.67 10*6/uL (4.10-5.10); RED CELL DISTRI WIDTH 15.4 % (0-14.5); WHITE BLOOD COUNT 5.7 10*3/uL (4.8-10.8)
[2022-02-22 06:21] LABS: PLATELET COUNT AUTOMATED 288 10*3/uL (130-400)
[2022-02-22 08:00] VITALS: BP 122/50
[2022-02-22 12:00] VITALS: BP 125/48
[2022-02-22] MEDS ORDERED: DOXYCYCLINE HY100 M3 PO (15:14)
[2022-02-22 16:00] VITALS: BP 135/48
== END 2022-02-22 19:29 | DRG 602 ==
LOC: ED 12:00 → EDHOLD 16:19 → 4E 16:19 → EDHOLD 17:10 → 4E 21:47
PROVIDERS: Family Medicine; Internal Medicine; Physician Assistant; ADMIT Internal Medicine; ATTEND Internal Medicine
DX: L03.114 Cellulitis of left upper limb (principal); E43 Unspecified severe protein-calorie malnutrition; E87.2 Acidosis; I50.32 Chronic diastolic (congestive) heart failure; C90.00 Multiple myeloma not having achieved remission; N17.9 Acute kidney failure, unspecified; Z20.822 Contact with and (suspected) exposure to COVID-19; D64.9 Anemia, unspecified; S51.852A Open bite of left forearm, initial encounter; I48.0 Paroxysmal atrial fibrillation; L08.9 Local infection of the skin and subcutaneous tissue, unspecified; K21.9 Gastro-esophageal reflux disease without esophagitis; F41.9 Anxiety disorder, unspecified; E11.65 Type 2 diabetes mellitus with hyperglycemia; D47.2 Monoclonal gammopathy; E87.6 Hypokalemia; F32.A Depression, unspecified; G89.3 Neoplasm related pain (acute) (chronic); F03.90 Unspecified dementia, unspecified severity, without behavioral disturbance, psychotic disturbance, mood disturbance, and anxiety; Z68.23 Body mass index [BMI] 23.0-23.9, adult; Y93.89 Activity, other specified; Y92.89 Other specified places as the place of occurrence of the external cause; W55.01XA Bitten by cat, initial encounter; Y99.8 Other external cause status; Z88.0 Allergy status to penicillin; Z88.8 Allergy status to other drugs, medicaments and biological substances; Z88.2 Allergy status to sulfonamides; Z88.1 Allergy status to other antibiotic agents; Z82.49 Family history of ischemic heart disease and other diseases of the circulatory system; Z79.899 Other long term (current) drug therapy; Z79.1 Long term (current) use of non-steroidal anti-inflammatories (NSAID); Z79.4 Long term (current) use of insulin

== ENCOUNTER → 2022-03-14 | Outpatient (CLI) | payer MEDICARE ==
[~2022-03-14] MED LIST changes: +CEFTRIAXONE2 G1 IV; +DOXYCYCLINE HY100 M3 PO; +Ipratropium Brom3 ML INH; +NOVOLIN N100 UNIT/1 SQ; +VISTARIL25 M2 PO
== END | disposition home or self-care (01) ==
LOC: RESCLI 02:25
PROVIDERS: ATTEND Internal Medicine
DX: I50.32 Chronic diastolic (congestive) heart failure (principal); I48.91 Unspecified atrial fibrillation; F32.9 Major depressive disorder, single episode, unspecified; E11.9 Type 2 diabetes mellitus without complications; I11.0 Hypertensive heart disease with heart failure; N18.30 Chronic kidney disease, stage 3 unspecified; K21.9 Gastro-esophageal reflux disease without esophagitis; J44.9 Chronic obstructive pulmonary disease, unspecified; F41.9 Anxiety disorder, unspecified; E55.9 Vitamin D deficiency, unspecified; Z12.39 Encounter for other screening for malignant neoplasm of breast; K76.89 Other specified diseases of liver; J45.909 Unspecified asthma, uncomplicated; L21.9 Seborrheic dermatitis, unspecified; G47.62 Sleep related leg cramps; F03.90 Unspecified dementia, unspecified severity, without behavioral disturbance, psychotic disturbance, mood disturbance, and anxiety; I48.0 Paroxysmal atrial fibrillation; F42.4 Excoriation (skin-picking) disorder; G89.29 Other chronic pain; G25.81 Restless legs syndrome; D50.9 Iron deficiency anemia, unspecified; L03.114 Cellulitis of left upper limb; E11.22 Type 2 diabetes mellitus with diabetic chronic kidney disease; Z09 Encounter for follow-up examination after completed treatment for conditions other than malignant neoplasm; Z78.0 Asymptomatic menopausal state; Z79.899 Other long term (current) drug therapy

== ENCOUNTER → 2022-04-22 | Outpatient (CLI) | payer MEDICARE | LOC: MAMMO 09:22 | PROVIDERS: ATTEND Internal Medicine | DX: Z12.31 Encounter for screening mammogram for malignant neoplasm of breast (principal); M81.0 Age-related osteoporosis without current pathological fracture; Z78.0 Asymptomatic menopausal state ==

== ENCOUNTER 2022-06-25 15:42 | Emergency (ER) | payer MEDICARE ==
[~2022-06-25] VITALS: Ht 160 cm; Wt 56.7 kg
[2022-06-25] MEDS ORDERED: KLOR-CON M2020 ME1 PO (19:24)
== END 2022-06-25 19:50 | disposition home or self-care (01) ==
LOC: ED 15:42
PROVIDERS: Nurse Practitioner Family
DX: E87.6 Hypokalemia (principal); R19.7 Diarrhea, unspecified; Z88.0 Allergy status to penicillin; Z88.2 Allergy status to sulfonamides; Z88.1 Allergy status to other antibiotic agents; Z79.899 Other long term (current) drug therapy; Z90.710 Acquired absence of both cervix and uterus

== ENCOUNTER → 2022-06-25 | Outpatient (CLI) | payer MEDICARE ==
[~2022-06-25] MED LIST changes: +CEFTRIAXONE1 G1 IV; +IRON325 M1 PO; +K-TAB20 MEQ PO; +LACTINEX 0.2 MG1 TAB PO; +LORADAMED10 MG PO; +MIRTAZAPINE15 M1 PO; +POTASSIUM CHLO20 ME4 PO; +TOPROL XL25 MG PO; +VANCOCIN HCL P125 MG PO; +ZOLOFT25 MG PO
[2022-06-25 13:03] LABS: BASO # 0.1 10*3/uL (0.0-0.1); BASO % 1.1 % (0.0-1.0); BILIRUBIN Negative (Negative); BLOOD Negative (Negative); CLARITY Clear (Clear); COLOR Yellow (Yellow); EOS # 0.4 10*3/uL (0.0-0.4); EOS % 5.2 % (1.0-4.0); GLUCOSE Negative (Negative); HEMATOCRIT 31.6 % (37.0-47.0); KETONE Negative (Negative); LEUKO ESTERASE Trace (Negative); LYMPH # 0.6 10*3/uL (1.3-4.4); LYMPH % 7.3 % (27.0-41.0); MEAN CORPUSCULAR HGB 28.5 pg (27.0-31.0); MEAN CORPUSCULAR HGB CONC 31.6 g/dl (33.0-37.0); MEAN PLATELET VOLUME 12.6 fl (9.6-12.3); MONO # 0.7 10*3/uL (0.1-1.0); MONO % 7.8 % (3.0-9.0); NEUT # 6.6 10*3/uL (2.3-7.9); NEUT % 78.2 % (47.0-73.0); NITRITE Negative (Negative); PH 5.5 (4.5-8.0); PLATELET COUNT AUTOMATED 175 10*3/uL (130-400); RED BLOOD COUNT 3.51 10*6/uL (4.10-5.10); RED CELL DISTRI WIDTH 15.4 % (0-14.5); SPECIFIC GRAVITY 1.025 (1.001-1.030); UROBILINOGEN 0.2 E.U./dl (0.0-1.0); WHITE BLOOD COUNT 8.4 10*3/uL (4.8-10.8)
[2022-06-25 13:25] LABS: CREATININE 1.84 mg/dL (0.55-1.02); TOTAL PROTEIN 7.2 gm/dL (6.4-8.2)
[2022-06-25 13:48] LABS: POTASSIUM 2.4 mmol/L (3.5-5.1)
[2022-06-25 15:00] LABS: EPITHELIAL CELLS TNTC; RBC 0-2 rbc/hpf (0-2)
[2022-06-25 15:01] LABS: BACTERIA 2+; YEAST 2+
== END | disposition home or self-care (01) ==
LOC: LAB 12:19
PROVIDERS: ATTEND Internal Medicine
DX: R30.0 Dysuria (principal); R19.7 Diarrhea, unspecified

== ENCOUNTER → 2022-08-01 | Outpatient (CLI) | payer MEDICARE ==
[~2022-08-01] MED LIST changes: +ALDACTONE25 MG PO
[2022-08-01 16:06] LABS: BASO # 0.1 10*3/uL (0.0-0.1); BASO % 1.1 % (0.0-1.0); EOS # 0.4 10*3/uL (0.0-0.4); EOS % 4.9 % (1.0-4.0); HEMATOCRIT 27.2 % (37.0-47.0); LYMPH # 0.7 10*3/uL (1.3-4.4); LYMPH % 9.5 % (27.0-41.0); MEAN CELL VOLUME 93.2 fl (81.0-99.0); MEAN CORPUSCULAR HGB 28.8 pg (27.0-31.0); MEAN CORPUSCULAR HGB CONC 30.9 g/dl (33.0-37.0); MEAN PLATELET VOLUME 11.8 fl (9.6-12.3); MONO # 0.8 10*3/uL (0.1-1.0); MONO % 10.7 % (3.0-9.0); NEUT # 5.3 10*3/uL (2.3-7.9); NEUT % 71.6 % (47.0-73.0); PLATELET COUNT AUTOMATED 256 10*3/uL (130-400); RED BLOOD COUNT 2.92 10*6/uL (4.10-5.10); RED CELL DISTRI WIDTH 14.6 % (0-14.5); WHITE BLOOD COUNT 7.4 10*3/uL (4.8-10.8)
[2022-08-01 16:23] LABS: CREATININE 2.28 mg/dL (0.55-1.02); POTASSIUM 5.2 mmol/L (3.5-5.1); TOTAL PROTEIN 6.9 gm/dL (6.4-8.2)
== END | disposition home or self-care (01) ==
LOC: LAB 14:56 → CT 15:00
PROVIDERS: ATTEND Internal Medicine
DX: S22.31XA Fracture of one rib, right side, initial encounter for closed fracture (principal); J90 Pleural effusion, not elsewhere classified; R59.9 Enlarged lymph nodes, unspecified; R18.8 Other ascites; K76.89 Other specified diseases of liver; I70.0 Atherosclerosis of aorta; K57.32 Diverticulitis of large intestine without perforation or abscess without bleeding; R91.1 Solitary pulmonary nodule; D72.829 Elevated white blood cell count, unspecified; R16.1 Splenomegaly, not elsewhere classified; I25.10 Atherosclerotic heart disease of native coronary artery without angina pectoris; M47.819 Spondylosis without myelopathy or radiculopathy, site unspecified; X58.XXXA Exposure to other specified factors, initial encounter; Y93.89 Activity, other specified; Y92.89 Other specified places as the place of occurrence of the external cause; Y99.8 Other external cause status

== ENCOUNTER 2022-10-25 09:13 | Emergency (ER) | payer MEDICARE ==
[~2022-10-25] VITALS: Wt 54.0 kg
[~2022-10-25 09:13] MED LIST changes: +AQUAPHOR WITH N50 GM T; +BUMETANIDE0.25 MG/1 IV; +Carafate1 GM PO; +GOOD SENSE ACID20 MG PO; +HEARTBURN RELIE20 MG PO; +HYDROCODONE-AC1 EAC2 PO; +REMEDY CALAZIME4 GM T
[2022-10-25 10:07] LABS: BASO % 1.3 % (0.0-1.0); EOS # 0.3 10*3/uL (0.0-0.4); EOS % 8.3 % (1.0-4.0); HEMATOCRIT 32.9 % (37.0-47.0); LYMPH # 0.4 10*3/uL (1.3-4.4); LYMPH % 11.8 % (27.0-41.0); MEAN CORPUSCULAR HGB 28.9 pg (27.0-31.0); MEAN CORPUSCULAR HGB CONC 30.7 g/dl (33.0-37.0); MEAN PLATELET VOLUME 10.8 fl (9.6-12.3); MONO # 0.4 10*3/uL (0.1-1.0); MONO % 12.5 % (3.0-9.0); NEUT # 2.1 10*3/uL (2.3-7.9); NEUT % 65.8 % (47.0-73.0); PLATELET COUNT AUTOMATED 176 10*3/uL (130-400); RED CELL DISTRI WIDTH 16.3 % (0-14.5); WHITE BLOOD COUNT 3.1 10*3/uL (4.8-10.8)
[2022-10-25 10:17] LABS: ACT PARTIAL THROMBO TIME 32.8 SECONDS (20.0-32.1); INTERNATIONAL NORM RATIO 1.2 (2.0-3.5)
[2022-10-25 10:24] LABS: POTASSIUM 3.3 mmol/L (3.4-5.1); TOTAL PROTEIN 6.5 gm/dL (6.0-8.0)
== END 2022-10-25 12:54 ==
LOC: ED 09:13
PROVIDERS: Emergency Medicine
DX: J90 Pleural effusion, not elsewhere classified (principal); Z88.0 Allergy status to penicillin; Z88.2 Allergy status to sulfonamides; Z88.1 Allergy status to other antibiotic agents; Z88.8 Allergy status to other drugs, medicaments and biological substances; Z90.710 Acquired absence of both cervix and uterus; Z98.42 Cataract extraction status, left eye; Z98.41 Cataract extraction status, right eye; Z90.12 Acquired absence of left breast and nipple; Z79.899 Other long term (current) drug therapy

== ENCOUNTER 2022-11-21 22:23 | Emergency (ER) | payer MEDICARE ==
[~2022-11-21] VITALS: Ht 160 cm; Wt 68.9 kg
[2022-11-21 22:55] LABS: BASO % 0.2 % (0.0-1.0); EOS % 0.3 % (1.0-4.0); HEMATOCRIT 27.3 % (37.0-47.0); LYMPH # 0.4 10*3/uL (1.3-4.4); LYMPH % 3.9 % (27.0-41.0); MEAN CELL VOLUME 97.2 fl (81.0-99.0); MEAN CORPUSCULAR HGB 29.2 pg (27.0-31.0); MEAN PLATELET VOLUME 10.8 fl (9.6-12.3); MONO # 0.9 10*3/uL (0.1-1.0); MONO % 8.3 % (3.0-9.0); NEUT # 9.4 10*3/uL (2.3-7.9); NEUT % 86.7 % (47.0-73.0); PLATELET COUNT AUTOMATED 233 10*3/uL (130-400); RED BLOOD COUNT 2.81 10*6/uL (4.10-5.10); RED CELL DISTRI WIDTH 16.7 % (0-14.5); WHITE BLOOD COUNT 10.8 10*3/uL (4.8-10.8)
[2022-11-21 23:04] LABS: INTERNATIONAL NORM RATIO 1.2 (2.0-3.5)
[2022-11-21 23:11] LABS: ALKALINE PHOSPHATASE 139 U/L (46-116); BUN 21 mg/dl (9-23); CHLORIDE 104 mmol/L (98-107); POTASSIUM 4.3 mmol/L (3.4-5.1); SGPT/ALT < 7 U/L (10-49)
== END 2022-11-22 00:24 ==
LOC: ED 22:23
PROVIDERS: Internal Medicine
DX: K64.4 Residual hemorrhoidal skin tags (principal); R18.8 Other ascites; K74.60 Unspecified cirrhosis of liver; D64.9 Anemia, unspecified; E43 Unspecified severe protein-calorie malnutrition; I13.0 Hypertensive heart and chronic kidney disease with heart failure and stage 1 through stage 4 chronic kidney disease, or unspecified chronic kidney disease; E11.22 Type 2 diabetes mellitus with diabetic chronic kidney disease; N18.32 Chronic kidney disease, stage 3b; E78.00 Pure hypercholesterolemia, unspecified; I48.91 Unspecified atrial fibrillation; Z88.0 Allergy status to penicillin; Z88.2 Allergy status to sulfonamides; Z88.1 Allergy status to other antibiotic agents; Z79.899 Other long term (current) drug therapy; Z90.710 Acquired absence of both cervix and uterus; Z98.890 Other specified postprocedural states

== ENCOUNTER 2022-11-24 12:24 | Emergency (ER) | payer MEDICARE ==
[~2022-11-24] VITALS: Ht 160 cm; Wt 63.5 kg
[2022-11-24 13:24] LABS: BASO % 0.1 % (0.0-1.0); EOS # 0.1 10*3/uL (0.0-0.4); HEMATOCRIT 24.2 % (37.0-47.0); LYMPH # 0.4 10*3/uL (1.3-4.4); MEAN CORPUSCULAR HGB 29.8 pg (27.0-31.0); MEAN PLATELET VOLUME 10.7 fl (9.6-12.3); MONO % 9.6 % (3.0-9.0); NEUT # 8.8 10*3/uL (2.3-7.9); NEUT % 84.8 % (47.0-73.0); PLATELET COUNT AUTOMATED 175 10*3/uL (130-400); RED BLOOD COUNT 2.52 10*6/uL (4.10-5.10); RED CELL DISTRI WIDTH 17.2 % (0-14.5); WHITE BLOOD COUNT 10.4 10*3/uL (4.8-10.8)
[2022-11-24 13:46] LABS: ALKALINE PHOSPHATASE 127 U/L (46-116); BUN 26 mg/dl (9-23); CHLORIDE 103 mmol/L (98-107); POTASSIUM 4.5 mmol/L (3.4-5.1); SGPT/ALT < 7 U/L (10-49); TOTAL PROTEIN 6.4 gm/dL (6.0-8.0)
== END 2022-11-24 13:59 | disposition home or self-care (01) ==
LOC: ED 12:24
PROVIDERS: Student in an Organized Health Care Education/Training Program
DX: I48.91 Unspecified atrial fibrillation (principal); E11.22 Type 2 diabetes mellitus with diabetic chronic kidney disease; I13.0 Hypertensive heart and chronic kidney disease with heart failure and stage 1 through stage 4 chronic kidney disease, or unspecified chronic kidney disease; N18.9 Chronic kidney disease, unspecified; I50.9 Heart failure, unspecified; Z88.0 Allergy status to penicillin; Z88.2 Allergy status to sulfonamides; Z88.1 Allergy status to other antibiotic agents; Z88.8 Allergy status to other drugs, medicaments and biological substances; Z90.710 Acquired absence of both cervix and uterus; Z98.890 Other specified postprocedural states; Z98.49 Cataract extraction status, unspecified eye

== ENCOUNTER 2022-12-23 09:35 | Emergency (ER) | payer MEDICARE ==
[~2022-12-23] VITALS: Ht 160 cm; Wt 56.2 kg
[~2022-12-23 09:35] MED LIST changes: +B12 ACTIVE1000 MCG PO; +MAGNESIUM OXID400 MG PO; +MUCUS RELIEF600 MG PO; +OMEPRAZOLE40 MG PO; +PROCTOFOAM-HC 110 G1 R; +SARNA ANTI-ITC222 ML T; +SERTRALINE HYDR50 MG PO; +VIBRA-TAB100 MG PO; +VITAMIN D250 MCG PO; +WEEKLY-D1250 MCG PO; +[UNRECOGNIZED DRUG - OTHER] T
[2022-12-23 10:06] LABS: BASO # 0.1 10*3/uL (0.0-0.1); BASO % 1.2 % (0.0-1.0); EOS # 0.2 10*3/uL (0.0-0.4); EOS % 3.5 % (1.0-4.0); HEMATOCRIT 29.6 % (37.0-47.0); LYMPH # 0.6 10*3/uL (1.3-4.4); MEAN CELL VOLUME 96.7 fl (81.0-99.0); MEAN CORPUSCULAR HGB 30.4 pg (27.0-31.0); MEAN CORPUSCULAR HGB CONC 31.4 g/dl (33.0-37.0); MEAN PLATELET VOLUME 10.2 fl (9.6-12.3); MONO # 0.9 10*3/uL (0.1-1.0); MONO % 14.5 % (3.0-9.0); NEUT # 4.2 10*3/uL (2.3-7.9); NEUT % 70.5 % (47.0-73.0); PLATELET COUNT AUTOMATED 164 10*3/uL (130-400); RED BLOOD COUNT 3.06 10*6/uL (4.10-5.10); RED CELL DISTRI WIDTH 16.2 % (0-14.5)
[2022-12-23 10:23] LABS: POTASSIUM 3.9 mmol/L (3.4-5.1); TOTAL PROTEIN 5.8 gm/dL (6.0-8.0)
[2022-12-23] MEDS ORDERED: LEVOFLOXACIN500 MG PO (11:16)
== END 2022-12-23 12:15 | disposition home or self-care (01) ==
LOC: ED 09:35
PROVIDERS: Emergency Medicine
DX: R00.0 Tachycardia, unspecified (principal); J18.9 Pneumonia, unspecified organism; I13.0 Hypertensive heart and chronic kidney disease with heart failure and stage 1 through stage 4 chronic kidney disease, or unspecified chronic kidney disease; E11.22 Type 2 diabetes mellitus with diabetic chronic kidney disease; N18.9 Chronic kidney disease, unspecified; I50.9 Heart failure, unspecified; E78.00 Pure hypercholesterolemia, unspecified; F03.90 Unspecified dementia, unspecified severity, without behavioral disturbance, psychotic disturbance, mood disturbance, and anxiety; I48.91 Unspecified atrial fibrillation; Z88.0 Allergy status to penicillin; Z88.2 Allergy status to sulfonamides; Z88.1 Allergy status to other antibiotic agents; Z88.8 Allergy status to other drugs, medicaments and biological substances; Z90.710 Acquired absence of both cervix and uterus; Z90.12 Acquired absence of left breast and nipple; Z98.42 Cataract extraction status, left eye; Z98.41 Cataract extraction status, right eye; Z98.890 Other specified postprocedural states